=== PATIENT | male | born 1955 | race Two or more races ===

== ENCOUNTER 2024-02-04 09:00 | Emergency (ER) | payer OTHER, SELFPAY ==
[2024-02-04 09:01] VITALS: BMI 32.8
[2024-02-04 09:18] VITALS: BP 152/86; PULSE 63; RESP 18; TEMP 36.7; O2SAT 98; BMI 34.6
--- NOTE | 2024-02-04 09:22 | XR_ITS ---
Examination: PA lateral chest 2 views Technique: Upright PA lateral chest 2 views Exam date and time: January 27, 2024 0938 hrs. Comparison July 27, 2012 Indications: Onset chest pain today. Findings: Normal heart size Mild vascular congestion. No lobar pneumonia or pulmonary edema Mild osteopenia Impression: Mild vascular congestion
--- NOTE | 2024-02-04 09:22 | EKG_ITS ---
[facility] Test Date: 2024-02-04 Pat Name: VALERIE CARLOS Department: Room: - Gender: Male Regulatory Compliance Manager: : 1955 Requested By: Daniel Fischer ([facility]) Order Number: [id number] Reading MD: Daniel Fischer ([facility]) Measurements Intervals [place] Rate: 66 P: 44 PA: 155 QRS: -34 QRSD: 101 T: 158 QT: 419 QTc: 441 Interpretive Statements SINUS RHYTHM MARKED LEFT AXIS DEVIATION [QRS AXIS < -30] MODERATE T-WAVE ABNORMALITY, CONSIDER LATERAL ISCHEMIA [-0.1+ mV T WAVE IN I/aVL/V5/V6] No previous ECG available for comparison /store/S0/[id number]/[id number].pdf
--- NOTE | 2024-02-04 09:22 | PD.EDRME ---
Rapid Medical Screening Exam RME Arrival date/time: 02/04/24 09:00 68-year-old male presents emergency department complaining of low back pain that radiates down hes right leg and dyspnea with exertion. Patient reports seen primary care provider yesterday and was told to go to the emergency department for further evaluation. Chief Complaint: Back Pain/Injury Vital signs: Vital Signs Temperature 98.0 F 02/04/24 09:18 Pulse Rate 63 02/04/24 09:18 Respiratory Rate 18 02/04/24 09:18 Blood Pressure 152/86 H 02/04/24 09:18 Pulse Oximetry (%) 98 02/04/24 09:18 Oxygen Delivery Method Room Air 02/04/24 09:18 Vital signs reviewed by provider: Yes
[2024-02-04] MEDS: ACETAMINOPHEN 500 MG TABLET 1000 MG PO (09:34)
[2024-02-04 10:16] LABS: Basophils # (Auto) 0.1 Thou/mm3 (0.0-0.2); Basophils % (Auto) 1 % (0-2.5); Eosinophils # (Auto) 0.6 Thou/mm3 (0.0-0.5); Eosinophils % (Auto) 8 % (0-10); Hematocrit 46.6 % (41.0-53.0); Hemoglobin 15.1 g/dL (13.5-16.0); Immature Granulocytes % (Auto) 1 % (0-0); Immature Granulocytes Auto 0.05 Thou/mm3 (0.00-0.00); Lymphocytes # (Auto) 1.6 Thou/mm3 (1.0-4.8); Lymphocytes % (Auto) 21 % (10-50); Mean Corpuscular HGB Conc 32.4 g/dl (31.0-37.0); Mean Corpuscular Hemoglobin 28.5 pg (25.0-35.0); Mean Corpuscular Volume 88 fL (80-100); Monocytes # (Auto) 0.7 Thou/mm3 (0.0-0.8); Monocytes % (Auto) 10 % (0-12); Neutrophils # (Auto) 4.5 Thou/mm3 (1.8-7.7); Neutrophils % (Auto) 60 % (37-80); Nucleated Red Blood Cell % 0 /100 WBC (0); Platelet Count 180 Thou/mm3 (140-440); RDW Standard Deviation 43.9 fL (35.1-43.9); Red Blood Count 5.29 Miln/mm3 (4.50-5.90); White Blood Count 7.5 Thou/mm3 (3.8-10.6)
[2024-02-04 10:31] VITALS: BP 128/85; PULSE 66; RESP 20; TEMP 36.8; O2SAT 97
[2024-02-04 10:36] LABS: Partial Thromboplastin Time 28.8 Seconds (22.0-36.0); Prothrombin Time 11.1 Seconds (9.0-12.2)
[2024-02-04 10:47] LABS: Alanine Aminotransferase 43 U/L (10-49); Albumin, Serum 5.2 gm/dL (3.4-4.8); Alkaline Phosphatase 89 U/L (46-116); Anion Gap 4 (7-16); Aspartate Amino Transferase 19 U/L (0-34); B-Type Natriuretic Peptide 76 pg/mL (0-100); BUN/Creatinine Ratio 16 Ratio (12-20); Bilirubin,Total 0.8 mg/dL (0.3-1.2); Blood Urea Nitrogen 14 mg/dL (9-23); Calcium 10.2 mg/dL (8.3-10.6); Calcium (Corrected) 10.2 mg/dL (8.5-10.1); Carbon Dioxide 30.6 mMol/L (20.0-31.0); Chloride 104 mMol/L (98-107); Creatinine (Component) 0.9 mg/dL (0.6-1.3); Estimated Creatinine Clearance 86.2 mL/min (>60); Globulin 2.6 gm/dL (2.3-3.5); Glucose 105 mg/dL (74-106); Magnesium 2.1 mg/dL (1.6-2.6); Osmolality,Calculated 278 (275-295); Potassium 4.1 mMol/L (3.4-5.1); Sodium 139 mMol/L (136-145); Total Protein 7.8 gm/dL (5.7-8.2); Troponin I < 0.020 ng/mL (0.0-0.045); eGFR > 60 See Note
--- NOTE | 2024-02-04 11:10 | XR_ITS ---
Examination:Right hip AP, lateral, AP pelvis 3 views Technique: Hip AP lateral, AP pelvis, 3 views Exam date and time:January 27, 2024 1115 hrs. Indications: Right hip pain beginning 2 weeks ago, no trauma Findings: Moderate osteopenia Moderate narrowing hip joints bilaterally No right hip fracture or dislocation No avascular necrosis Left hip bones of the pelvis intact Impression: Moderate bilateral hip osteoarthritis.
--- NOTE | 2024-02-04 11:10 | XR_ITS ---
Examination: Lumbar spine 3 views Technique one AP lateral coned lateral lower lumbar spine 3 views Exam date and time: February 04, 2024 1121 hrs. Indications: Low back pain beginning 2 weeks ago, no trauma Findings: Straightening normal lumbar lordosis No lumbar fracture Prominent lumbar spondylosis, anterior osteophytes measuring up to 3.5 cm Moderate to advanced diffuse lumbar degenerative disc disease, most severe at L4-L5 No spondylolisthesis Impression: Diffuse moderate to advanced lumbar degenerative disc disease with significant spinal stenosis Prominent lumbar spondylosis
--- NOTE | 2024-02-04 11:19 | PD.EDADULT ---
ED General RME/HPI General Chief complaint: Back Pain/Injury Stated complaint: SCIATIC/ARTHRITIS FOR 10 DAYS Arrival date/time: 02/04/24 09:00 RME / HPI RME / HPI narrative: 02/04/24 09:00 RME: 68-year-old male presents emergency department complaining of low back pain that radiates down hes right leg and dyspnea with exertion. Patient reports seen primary care provider yesterday and was told to go to the emergency department for further evaluation. ELSY HPI: 68-year-old male with a history of chronic hip and low back pain who presents to the emergency department with recurrence of his right hip and right leg pain. He states is worse every time of this year particularly worsened by the cold in the rain. He feels that it starts on the right side of his hip but it feels like hammers hitting his bone) down the lateral length of his femur and fibula. He denies recent trauma. He has seen his primary care doctor about this several times over the last decade and has been diagnosed with sciatica . He takes ibuprofen for this pain. Ibuprofen has not been improving his pain he went to see his primary care physician yesterday who on triage noted that his heart was slow and recommended he come to the emergency department for workup. Patient denies symptoms, he denies shortness of breath, weakness. He denies palpitations or chest pain. Related Data Previous Rx's ?Medication ?Instructions ?Recorded cyclobenzaprine 5 mg tablet 5 mg PO TID PRN muscle spasm #10 09/23/17 tabs ibuprofen 600 mg tablet (IBU) 600 mg PO TID PRN neck strain #30 09/23/17 tabs gabapentin 100 mg capsule 100 mg PO TID pain #15 caps 02/04/24 hydrocodone 5 mg-acetaminophen 325 1 tab PO Q8H PRN breakthrough pain 02/04/24 mg tablet #7 tabs Allergies Allergy/AdvReac Type Severity Reaction Status Date / Time No Known Allergies Allergy Verified 02/04/24 09:05 Review of Systems Review of Systems Systems Reviewed: All systems reviewed, normal except as documented ED Exam Narrative Physical exam: GENERAL APPEARANCE: AxOx4, generally well-appearing, no acute distress. HEENT: NC, AT. MMM. EOMI, clear conjunctiva, oropharynx clear. NECK: Supple without lymphadenopathy. No stiffness or restricted ROM. HEART: Normal rate and regular rhythm, normal S1/S1, no m/r/g LUNGS: CTAB, moving air well. No crackles or wheezes are heard. ABDOMEN: Soft, nontender, nondistended with good bowel sounds heard. BACK: No midline C/T/L spine pain or deformity, No CVAT, no obvious deformity. EXTREMITIES: Without cyanosis, clubbing or edema. MUSCULOSKELETAL: FROM of all major joints, mild tenderness over the lateral aspect of his right hip, knee with full range of motion without deficit or swelling. No foot drop no chest tenderness NEUROLOGICAL: Grossly nonfocal. Alert and oriented, moving all 4 extremities. CN not formally tested but appear grossly intact. Observed to ambulate with normal gait. Skin: Warm and dry without any rash. Course Quality Measures none Orders Category Date Time Status EKG (ED ONLY) *Do not use* NOW Care 02/04/24 09:22 Completed EKG (ED Only) Stat Exams 02/04/24 09:22 Draft XR chest 2V Stat Exams 02/04/24 09:22 Completed XR hip RT w pelvis 2-3V Stat Exams 02/04/24 11:10 Completed XR lumbar spine 2-3V Stat Exams 02/04/24 11:10 Completed B-Type Natriuretic Peptide Stat Lab 02/04/24 10:00 Completed CBC Stat Lab 02/04/24 10:00 Completed Comprehensive Metabolic Panel Stat Lab 02/04/24 10:00 Completed Drug Screen,Urine Stat Lab 02/04/24 10:53 Completed Magnesium Stat Lab 02/04/24 10:00 Completed Partial Thromboplastin Time Stat Lab 02/04/24 10:00 Completed Prothrombin Time with INR Stat Lab 02/04/24 10:00 Completed Troponin I Stat Lab 02/04/24 10:00 Completed Urinalysis Stat Lab 02/04/24 10:53 Completed Acetaminophen Tab [Tylenol ES Tab] Med 02/04/24 09:24 Discontinued 1,000 mg PO X1 ONE Gabapentin [Neurontin] Med 02/04/24 11:10 Discontinued 300 mg PO X1 ONE Ketorolac Inj [Toradol Inj] Med 02/04/24 11:10 Discontinued 30 mg IM X1 ONE Vital Signs Vital signs: Vital Signs Temperature 98.0 F 02/04/24 09:18 Pulse Rate 63 02/04/24 09:18 Respiratory Rate 18 02/04/24 09:18 Blood Pressure 152/86 H 12/28/24 09:18 Pulse Oximetry (%) 98 02/04/24 09:18 Oxygen Delivery Method Room Air 02/04/24 09:18 SpO2 98% on room air, patient is not hypoxic Procedures -ED EKG Interpretation #1: Date of EK02/04/24 Time of EK:38 Rate: 68 Interpretation: Interpreted by me EKG Impression: Normal sinus rhythm, No acute ST-T changes, Normal intervals and Normal axis MDM Patient data External records reviewed:: [facility] previous records Clinical information provided by:: patient Social determinants that could affect healthcare access:: none Patient has the following chronic illnesses:: Arthritis How is presenting disease/condition affected by chronic disease/condition?: caused by Evaluation data The following diagnostics were reviewed and interpreted by me:: lab results, radiology exam(s) and EKG tracing(s) Lab and/or radiology exams considered but not ordered:: None Interpretation Summary: As per narrative Medications Medications considered but not ordered:: None Medication administrations:: Medication Administration History Discontinued Medications Acetaminophen (Acetaminophen 500 Mg Tablet) 1,000 mg PO X1 ONE Stop: 02/04/24 09:25 Last Admin: 02/04/24 09:34 Dose: 1,000 mg Documented By: ASLHEY Gabapentin (Gabapentin 300 Mg Capsule) 300 mg PO X1 ONE Stop: 02/04/24 11:11 Last Admin: 02/04/24 12:20 Dose: 300 mg Documented By: KAMLESH Ketorolac Tromethamine (Ketorolac Inj 60 Mg/2 Ml Vial) 30 mg IM X1 ONE Stop: 02/04/24 11:11 Last Admin: 02/04/24 12:20 Dose: 30 mg Documented By: KAMLESH Above Consultations Consultation(s) initiated? (list below): No Diagnosis Differential Diagnosis ED Complaint MDM: Osteoarthritis, gout, neuropathy, bone metastases Most likely diagnosis given after review of the tests above:: see below Admission Indicated Admission indicated?: not indicated Explain why admission is indicated or not indicated:: Chronic issue with without acute findings and normal neurologic exam, he is appropriate for outpatient follow-up with pain management Admission Request Was there a request for admission?: No Disposition Plan Disposition Plan: Discharge Discharge Attestation Discharge Attestation: The patient and all family members were given an opportunity to ask questions and understood the discharge instructions. Discharge instructions specifically effects, indications for sooner follow up or return to the emergency department, and the expected course of current diagnosis. Patient condition: Stable Medical Decision Making Differential Diagnosis Differential Diagnosis: Osteoarthritis, gout, neuropathy, bone metastases Lab Data 02/04/24 10:00 02/04/24 10:00 Labs: Lab Results 02/04/24 02/04/24 Range/Units 10:00 10:53 WBC 7.5 (3.8-10.6) Thou/mm3 RBC 5.29 (4.50-5.90) Miln/mm3 Hgb 15.1 (13.5-16.0) g/dL Hct 46.6 (41.0-53.0) % MCV 88 (80-100) fL MCH 28.5 (25.0-35.0) pg MCHC 32.4 (31.0-37.0) g/dl RDW Std Deviation 43.9 (35.1-43.9) fL Plt Count 180 (140-440) Thou/mm3 Neut % (Auto) 60 (37-80) % Lymph % (Auto) 21 (10-50) % [place] % (Auto) 10 (0-12) % Eos % (Auto) 8 (0-10) % Baso % (Auto) 1 (0-2.5) % Neut # (Auto) 4.5 (1.8-7.7) Thou/mm3 Lymph # (Auto) 1.6 (1.0-4.8) Thou/mm3 [place] # (Auto) 0.7 (0.0-0.8) Thou/mm3 Eos # (Auto) 0.6 H (0.0-0.5) Thou/mm3 Baso # (Auto) 0.1 (0.0-0.2) Thou/mm3 Immature Gran # (Auto) 0.05 H (0.00-0.00) Thou/mm3 Absolute Nucleated RBC 0.00 (0.00-0.00) Thou/mm3 Immature Gran % 1 H (0-0) % Nucleated RBC % 0 (0) /100 WBC PT 11.1 (9.0-12.2) Seconds INR 1.0 (0.9-1.3) APTT 28.8 (22.0-36.0) Seconds Sodium 139 (136-145) mMol/L Potassium 4.1 (3.4-5.1) mMol/L Chloride 104 (98-107) mMol/L Carbon Dioxide 30.6 (20.0-31.0) mMol/L Anion Gap 4 L (7-16) BUN 14 (9-23) mg/dL Creatinine 0.9 (0.6-1.3) mg/dL Estim Creat Clear Calc 86.2 (>60) mL/min eGFR > 60 (60 - ) See Note BUN/Creatinine Ratio 16 (12-20) Ratio Glucose 105 (74-106) mg/dL Calculated Osmolality 278 (275-295) Calcium 10.2 (8.3-10.6) mg/dL Corrected Calcium 10.2 H (8.5-10.1) mg/dL Magnesium 2.1 (1.6-2.6) mg/dL Total Bilirubin 0.8 (0.3-1.2) mg/dL AST 19 (0-34) U/L ALT 43 (10-49) U/L Alkaline Phosphatase 89 (46-116) U/L Troponin I < 0.020 (0.0-0.045) ng/mL B-Natriuretic Peptide 76 (0-100) pg/mL Total Protein 7.8 (5.7-8.2) gm/dL Albumin 5.2 H (3.4-4.8) gm/dL Globulin 2.6 (2.3-3.5) gm/dL Albumin/Globulin Ratio 2.0 (1.2-2.2) Ur Collection Type Clean Catch Urine Color Lt-Yellow (Lt Yel-Yel) Urine Clarity Clear (Clear/Hazy) Urine pH 6.0 (5.0-7.0) Ur Specific [place] 1.015 (1.001-1.035) Urine Protein Negative (Neg - Trace) Urine Glucose (UA) Negative (Negative) Urine Ketones Negative (Negative) Urine Blood Trace (Negative) Urine Nitrite Negative (Negative) Urine Bilirubin Negative (Negative) Urine Urobilinogen (Auto) Negative (0.0-1.0) mg/dL Ur Leukocyte Esterase Negative (Negative) Urine RBC 4 H (0-3) /hpf Urine WBC 1 (0-5) /hpf Ur Squamous Epith Cells < 1 (0-5) /hpf Urine Bacteria None (None) Urine Opiates Screen Negative (Negative) Urine Fentanyl Screen Negative (Negative) Ur Barbiturates Screen Negative (Negative) U Amphetamin/Meth Scrn Negative (Negative) U Benzodiazepines Scrn Negative (Negative) U Cocaine Metab Screen Negative (Negative) U Marijuana (THC) Screen Negative (Negative) Discharge Plan Plan Patient Disposition: HOME (Self Care) Prescriptions/Referrals Prescriptions/Med Rec: New gabapentin 100 mg capsule 100 mg PO TID Qty: 15 0RF hydrocodone-acetaminophen 5-325 mg tablet 1 tab PO Q8H MDD 3 tab/day PRN (Reason: breakthrough pain) Qty: 7 0RF No Action ibuprofen [IBU] 600 mg tablet 600 mg PO TID PRN (Reason: neck strain) Qty: 30 0RF cyclobenzaprine 5 mg tablet 5 mg PO TID PRN (Reason: muscle spasm) Qty: 10 0RF Referrals: Cayla Pineda MD [Primary Care Provider] - In 1 week Problem List Clinical Impression: Sciatica, Arthritis of both hips Patient/Caregiver Discharge Instructions Education Materials: ED Osteoarthritis, ED Sciatica Additional Instructions: James un seguimiento con arciniega m?dico de atenci?n primaria en 3 a 5 d?as si los s?ntomas no mejoran. Puede regresar al departamento de emergencias [facility] pronto katherin los s?ntomas empeoren o si nota alg?n problema nuevo que le preocupe. Print Language: Kinyarwanda Stand Alone Forms: [place] [facility] Info., Patient Portal Info Letter
[2024-02-04 11:43] LABS: Collection Type, Urine Clean Catch
[2024-02-04 11:54] LABS: Bilirubin,Urine Negative (Negative); Blood,Urine Trace (Negative); Clarity,Urine Clear (Clear/Hazy); Color,Urine Lt-Yellow (Lt Yel-Yel); Glucose, Urine Negative (Negative); Ketones,Urine Negative (Negative); Leukocyte Esterase,Urine Negative (Negative); Nitrite,Urine Negative (Negative); Protein,Urine Negative (Neg - Trace); RBC,Urine 4 /hpf (0-3); Specific Gravity,Urine 1.015 (1.001-1.035); Squamous Epithelial Cell,Urine < 1 /hpf (0-5); Urobilinogen,Urine Negative mg/dL (0.0-1.0); WBC,Urine 1 /hpf (0-5)
[2024-02-04 12:01] LABS: Amphetamine/Methamp Scrn,U Negative (Negative); Barbiturate Screen,Urine Negative (Negative); Benzodiazepines Screen,Urine Negative (Negative); Benzoylecgonine Screen, Ur Negative (Negative); Fentanyl Screen,Urine Negative (Negative); Opiate Screen,Urine Negative (Negative); THC Screen,Urine Negative (Negative)
[2024-02-04] MEDS: KETOROLAC INJ 60 MG/2 ML VIAL 30 MG IM (12:20)
[2024-02-04] MEDS: GABAPENTIN 300 MG CAPSULE PO (12:20)
== END 2024-02-04 12:51 | disposition home or self-care (01) ==
PROVIDERS: Emergency Provider Emergency Medicine; PCP Family Medicine
DX: M54.41 Lumbago with sciatica, right side (principal); M16.0 Bilateral primary osteoarthritis of hip; R06.00 Dyspnea, unspecified; M51.369 Other intervertebral disc degeneration, lumbar region without mention of lumbar back pain or lower extremity pain; M48.061 Spinal stenosis, lumbar region without neurogenic claudication
CPT/HCPCS: 36415; 71046; 72100; 73502; 80053; 80307; 81001; 83735; 83880; 84484; 85025; 85610; 85730; 93005; 96372; 99283; J1885; A9270

== ENCOUNTER 2024-08-07 11:28 | Inpatient (IN) | payer MEDICARE, OTHER, SELFPAY ==
[2024-08-07] VITALS (13 sets, daily range): BP systolic 120–140; BP diastolic 78–109; PULSE 62–95; RESP 12–27; TEMP 36.7–37.1; O2SAT 93–99; BMI 32.4
--- NOTE | 2024-08-07 11:57 | EKG_ITS ---
[facility] Test Date: 2024-08-07 Pat Name: VALERIE CARLOS Department: Room: - Gender: Male Tube Buffer: : 1955 Requested By: Rob Redmond Order Number: [id number] Reading MD: Rob Redmond Measurements Intervals [place] Rate: 66 P: 40 OR: 167 QRS: -20 QRSD: 101 T: 122 QT: 398 QTc: 418 Interpretive Statements SINUS RHYTHM WITH OCCASIONAL VENTRICULAR PREMATURE COMPLEXES NONSPECIFIC T-WAVE ABNORMALITY Compared to ECG 02/04/2024 09:38:37 Ventricular premature complex(es) now present Left-axis deviation no longer present Possible ischemia no longer present T-wave abnormality still present /store/S0/[id number].pdf
--- NOTE | 2024-08-07 11:57 | XR_ITS ---
Examination: PA lateral chest 2 views TECHNIQUE: Upright PA lateral chest 2 views Date and time: August 07, 2024 1208 hours Comparison February 04, 2024 INDICATIONS: Chest pain today. FINDINGS: Mild CHF Mild enlargement cardiac contour. Prominent vascular congestion with perihilar basilar edema Prominent osteopenia, prominent anterior osteophytes mid to lower dorsal spine IMPRESSION: Mild CHF
--- NOTE | 2024-08-07 12:09 | PD.EDRME ---
Rapid Medical Screening Exam RME Arrival date/time: 08/07/24 11:28 69-year-old male with no known medical history presents to the emergency room with a chief complaint of shortness of breath, bilateral lower extremity swelling, x 1 week I have greeted and performed a focused initial assessment of this patient. A comprehensive ED assessment and evaluation of the patient, analysis of all test results, and completion of the medical decision making process will be conducted by additional ED providers. Chief Complaint: Shortness of Breath/Dyspnea Vital signs: Vital Signs Temperature 98.8 F 08/07/24 11:50 Pulse Rate 69 08/07/24 11:50 Respiratory Rate 19 08/07/24 11:50 Blood Pressure 128/87 H 08/07/24 11:50 Pulse Oximetry (%) 95 08/07/24 11:50 Oxygen Delivery Method Room Air 08/07/24 11:50 Vital signs reviewed by provider: Yes
[2024-08-07 13:04] LABS: Basophils # (Auto) 0.1 Thou/mm3 (0.0-0.2); Basophils % (Auto) 1 % (0-2.5); Eosinophils # (Auto) 0.2 Thou/mm3 (0.0-0.5); Eosinophils % (Auto) 2 % (0-10); Hematocrit 42.2 % (41.0-53.0); Hemoglobin 13.6 g/dL (13.5-16.0); Immature Granulocytes Auto 0.02 Thou/mm3 (0.00-0.00); Lymphocytes # (Auto) 1.0 Thou/mm3 (1.0-4.8); Lymphocytes % (Auto) 11 % (10-50); Mean Corpuscular HGB Conc 32.2 g/dl (31.0-37.0); Mean Corpuscular Hemoglobin 27.5 pg (25.0-35.0); Mean Corpuscular Volume 85 fL (80-100); Monocytes # (Auto) 0.7 Thou/mm3 (0.0-0.8); Monocytes % (Auto) 8 % (0-12); Neutrophils # (Auto) 7.3 Thou/mm3 (1.8-7.7); Neutrophils % (Auto) 79 % (37-80); Nucleated Red Blood Cell # 0.00 Thou/mm3 (0.00-0.00); Nucleated Red Blood Cell % 0 /100 WBC (0); Platelet Count 142 Thou/mm3 (140-440); RDW Standard Deviation 45.1 fL (35.1-43.9); Red Blood Count 4.95 Miln/mm3 (4.50-5.90); White Blood Count 9.3 Thou/mm3 (3.8-10.6)
[2024-08-07 13:24] LABS: Alanine Aminotransferase 66 U/L (10-49); Albumin, Serum 4.3 gm/dL (3.4-4.8); Albumin/Globulin Ratio 1.7 (1.2-2.2); Alkaline Phosphatase 95 U/L (46-116); Anion Gap 6 (7-16); Aspartate Amino Transferase 44 U/L (0-34); BUN/Creatinine Ratio 12 Ratio (12-20); Bilirubin,Total 0.9 mg/dL (0.3-1.2); Blood Urea Nitrogen 12 mg/dL (9-23); Calcium 9.4 mg/dL (8.3-10.6); Calcium (Corrected) 9.4 mg/dL (8.5-10.1); Carbon Dioxide 29.1 mMol/L (20.0-31.0); Chloride 109 mMol/L (98-107); Creatinine (Component) 1.0 mg/dL (0.6-1.3); Estimated Creatinine Clearance 66.9 mL/min (>60); Globulin 2.5 gm/dL (2.3-3.5); Glucose 102 mg/dL (74-106); INR 1.0 (0.9-1.3); Osmolality,Calculated 286 (275-295); Partial Thromboplastin Time 29.8 Seconds (22.0-36.0); Potassium 4.6 mMol/L (3.4-5.1); Prothrombin Time 11.4 Seconds (9.0-12.2); Sodium 144 mMol/L (136-145); Total Protein 6.8 gm/dL (5.7-8.2); Troponin I < 0.020 ng/mL (0.0-0.045); eGFR > 60 See Note
[2024-08-07 13:26] LABS: Collection Type, Urine Clean Catch; Squamous Epithelial Cell,Urine 0 /hpf (0-5)
[2024-08-07 13:34] LABS: B-Type Natriuretic Peptide 467 pg/mL (0-100)
[2024-08-07 13:52] LABS: Bilirubin,Urine Negative (Negative); Blood,Urine Negative (Negative); Clarity,Urine Clear (Clear/Hazy); Color,Urine Yellow (Lt Yel-Yel); Glucose, Urine Negative (Negative); Ketones,Urine Negative (Negative); Leukocyte Esterase,Urine Negative (Negative); Nitrite,Urine Negative (Negative); PH,Urine 6.5 (5.0-7.0); Protein,Urine 1+ (Neg - Trace); RBC,Urine 7 /hpf (0-3); Specific Gravity,Urine 1.029 (1.001-1.035); Urobilinogen,Urine Negative mg/dL (0.0-1.0); WBC,Urine 2 /hpf (0-5)
[2024-08-07 13:53] LABS: Amphetamine/Methamp Scrn,U Negative (Negative); Barbiturate Screen,Urine Negative (Negative); Benzodiazepines Screen,Urine Negative (Negative); Benzoylecgonine Screen, Ur Negative (Negative); Fentanyl Screen,Urine Negative (Negative); Opiate Screen,Urine Negative (Negative); THC Screen,Urine Negative (Negative)
--- NOTE | 2024-08-07 18:09 | EDNOTE_ITS ---
ED SOB =RME/HPI General Chief Complaint: Shortness of Breath/Dyspnea Stated Complaint: SOB Time Seen by Provider: 08/07/24 18:16 Arrival date/time: 08/07/24 11:28 69-year-old male with no known past medical history presents to the ED with a complaint of shortness of breath for the past 2 days. The shortness of breath is worse with laying flat. He has also had a mild sore throat due to the phlegm as well as a mild cough with phlegm, unknown color. He has had some mild epigastric pain. He denies any chest pain, fever or chills, runny nose or nasal congestion, ear pain, nausea or vomiting, diarrhea or constipation, but has had some posterior cervical spine pain. RME / HPI RME / HPI Narrative: 08/07/24 11:28 69-year-old male with no known medical history presents to the emergency room with a chief complaint of shortness of breath, bilateral lower extremity swelling, x 1 week I have greeted and performed a focused initial assessment of this patient. A comprehensive ED assessment and evaluation of the patient, analysis of all test results, and completion of the medical decision making process will be conducted by additional ED providers. Related Data Previous Rx's ?Medication ?Instructions ?Recorded cyclobenzaprine 5 mg tablet 5 mg PO TID PRN muscle spa sm #10 09/23/17 tabs ibuprofen 600 mg tablet (IBU) 600 mg PO TID PRN neck s train #30 09/23/17 tabs gabapentin 100 mg capsule 100 mg PO TID pain #15 caps 02/04/24 hydrocodone 5 mg-acetaminophen 325 1 tab PO Q8H PRN br eakthrough pain 02/04/24 mg tablet #7 tabs Allergies Allergy/AdvReac Type Severity Reaction Status Date / Time No Known Allergies Allergy Verified 08/07/24 11:35 Review of Systems Review of Systems Systems Reviewed: All systems reviewed, normal except as documented Past Medical History Past Medical History CARDIAC: Negative Congestive Heart Failure RESPIRATORY: Negative Chronic Obstructive Pulmonary Disease (COPD) GASTROINTESTINAL: Positive Obesity GENITOURINARY: Positive Kidney Stones; Negative Renal Disease ENDOCRINE: Negative Diabetes Mellitus Type 1 or Diabetes Mellitus Type 2 Social History SMOKING STATUS: Never smoker ED Exam Narrative Physical exam: Alert and oriented, male, laying flat on the gurney, mild acute respiratory distress. Vital signs blood pressure 128/87, pulse 69, respirations 19, temperature 98.8, O2 sat 95% on room air. Cardiovascular regular rate and rhythm, lungs are congested, abdomen is soft with minimal to mild epigastric tenderness. Moves all extremities well, no pitting edema noted to bilateral lower extremities. Course Course Course Narrative: Labs reveal a normal white count, normal H&H and platelets. Coags were normal, chemistry panel reveals a minimally elevated chloride at 109. Normal renal function, mildly elevated AST/ALT at 44/66. Initial troponin was less than 0.020 and second troponin was also less than 0.020. BNP was elevated at 467. Urinalysis is negative for any infection. Urine tox screen is negative. COVID, influenza, strep screen are all negative. Initial EKG revealed sinus rhythm with occasional PVCs with no T wave abnormality or ST elevation. Second EKG reveals sinus rhythm with frequent PVCs with left axis deviation with no T wave abnormality or ST elevation. Chest x-ray reveals mild CHF. Quality Measures none Orders Category Date Time Status Bedside Influenza A&B Antigen Test NOW Care 08/07/24 20:06 Completed EKG (ED ONLY) *Do not use* NOW Care 08/07/24 11:57 Completed EKG (ED ONLY) *Do not use* NOW Care 08/07/24 19:29 Completed EKG (ED Only) Stat Exams 08/07/24 11:57 Draft EKG (ED Only) Stat Exams 08/07/24 19:29 Draft XR chest 2V Stat Exams 08/07/24 11:57 Completed B-Type Natriuretic Peptide Stat Lab 08/07/24 12:40 Completed CBC Stat Lab 08/07/24 12:40 Completed COVID-19 Antigen (In-House) Stat Lab 08/07/24 20:20 Completed Comprehensive Metabolic Panel Stat Lab 08/07/24 12:40 Completed Drug Screen,Urine Stat Lab 08/07/24 11:00 Completed Partial Thromboplastin Time Stat Lab 08/07/24 12:40 Completed Prothrombin Time with INR Stat Lab 08/07/24 12:40 Completed Strep A Rapid Stat Lab 08/07/24 20:06 Completed Troponin I Stat Lab 08/07/24 12:40 Completed Troponin I Stat Lab 08/07/24 20:13 Completed Urinalysis Stat Lab 08/07/24 11:00 Completed Furosemide [Lasix] Med 08/07/24 22:32 Once 20 mg PO X1 ONE Vital Signs Vital signs: Vital Signs Temperature 98.8 F 08/07/24 11:50 Pulse Rate 69 08/07/24 11:50 Respiratory Rate 19 08/07/24 11:50 Blood Pressure 128/87 H 08/07/24 11:50 Pulse Oximetry (%) 95 08/07/24 11:50 Oxygen Delivery Method Room Air 08/07/24 11:50 Shortness of Breath / Dyspnea MDM Narrative MDM Narrative:: 69-year-old male with no known past medical history presents to the ED with a complaint of shortness of breath for the past 2 days. The shortness of breath is worse with laying flat. He has also had a mild sore throat due to the phlegm as well as a mild cough with phlegm, unknown color. He has had some mild epigastric pain. He denies any chest pain, fever or chills, runny nose or nasal congestion, ear pain, nausea or vomiting, diarrhea or constipation, but has had some posterior cervical spine pain. Alert and oriented, male, laying flat on the gurney, mild acute respiratory distress. Vital signs blood pressure 128/87, pulse 69, respirations 19, temperature 98.8, O2 sat 95% on room air. Cardiovascular regular rate and rhythm, lungs are congested, no JVD is noted, abdomen is soft with minimal to mild epigastric tenderness. Moves all extremities well, no pitting edema noted to bilateral lower extremities. Labs reveal a normal white count, normal H&H and platelets. Coags were normal, chemistry panel reveals a minimally elevated chloride at 109. Normal renal function, mildly elevated AST/ALT at 44/66. Initial troponin was less than 0.020 and second troponin was also less than 0.020. BNP was elevated at 467. Urinalysis is negative for any infection. Urine tox screen is negative. COVID, influenza, strep screen are all negative. Initial EKG revealed sinus rhythm with occasional PVCs with no T wave abnormality or ST elevation. Second EKG reveals sinus rhythm with frequent PVCs with left axis deviation with no T wave abnormality or ST elevation. Chest x-ray reveals mild CHF. At one point during his visit his oxygen saturation dropped down into the 90% but has since improved to 95-96% on room air. He was given Lasix 20 mg p.o. Discussed case with Dr. Kahn who recommends obtaining a consult from the hospitalist service for evaluation for admission for diuresis and morning echocardiogram. Contacted hospitalist service for consultation for possible admission for overnight diuresis and morning echocardiogram, due to his orthopnea and new onset CHF. Patient data External records reviewed:: None Clinical information provided by:: patient Social determinants that could affect healthcare access:: none Patient has the following chronic illnesses:: N/A How is presenting disease/condition affected by chronic disease/condition?: no chronic disease Evaluation data The following diagnostics were reviewed and interpreted by me:: lab results and radiology exam(s) Lab and/or radiology exams considered but not ordered:: N/A Interpretation Summary: Labs reveal a normal white count, normal H&H and platelets. Coags were normal, chemistry panel reveals a minimally elevated chloride at 109. Normal renal function, mildly elevated AST/ALT at 44/66. Initial troponin was less than 0.020 and second troponin was also less than 0.020. BNP was elevated at 467. Urinalysis is negative for any infection. Urine tox screen is negative. COVID, influenza, strep screen are all negative. Chest x-ray reveals mild CHF. Medications / Prescriptions Medications or Prescriptions considered but not ordered:: N/A Medication administrations:: Medication Administration History Furosemide (Furosemide 20 Mg Tablet) 20 mg PO X1 ONE Stop: 08/07/24 22:33 Lasix 20 mg p.o. Consultations Consultation(s) initiated? (list below): Yes Consultation #1 (Physician, Specialty, Details): Contacted hospitalist service for consultation for possible admission for overnight diuresis and morning echocardiogram, due to his orthopnea and new onset CHF. Diagnosis Shortness of Breath Differential Diagnosis: congestive heart failure, community acquired pneumonia and asthma with exacerbation Most likely diagnosis given after review of the tests above:: New onset CHF with orthopnea Admission Indicated Admission indicated?: indicated Explain why admission is indicated or not indicated:: New onset CHF with orthopnea Admission Request Was there a request for admission?: Yes Admission Attestation Admission request attestation: Discussed case with Hospitalist service regarding admission. Discussed patients ED course, exam findings, labs, and radiology results. The Hospitalist agrees to consult on the patient for possible admission. Disposition Plan Disposition Plan: Admit Discharge Plan Plan Patient Disposition: Admit Acute Care w/in Hospital Discharge Disposition comment: Stable Prescriptions/Referrals Prescriptions/Med Rec: No Action ibuprofen [IBU] 600 mg tablet 600 mg PO TID PRN (Reason: neck strain) Qty: 30 0RF cyclobenzaprine 5 mg tablet 5 mg PO TID PRN (Reason: muscle spasm) Qty: 10 0RF gabapentin 100 mg capsule 100 mg PO TID Qty: 15 0RF hydrocodone-acetaminophen 5-325 mg tablet 1 tab PO Q8H MDD 3 tab/day PRN (Reason: breakthrough pain) Qty: 7 0RF Referrals: Cayla Pineda MD [Primary Care Provider] - In 1 week Problem List Clinical Impression: Congestive heart failure Impression comment: New onset w/ORTHOPNEA Patient/Caregiver Discharge Instructions Print Language: Kazakh PA/UPPER STITCHER Supervising Physician PA/MORGAN Supervising Physician: Dr. Kahn
--- NOTE | 2024-08-07 19:29 | EKG_ITS ---
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
[2024-08-07 20:48] LABS: Troponin I < 0.020 ng/mL (0.0-0.045)
[2024-08-07 21:30] LABS: COVID-19 Antigen (In-House) Negative (Negative)
[2024-08-07 21:34] LABS: Strep A Rapid Negative (Negative)
[2024-08-08] VITALS (37 sets, daily range): BP systolic 97–137; BP diastolic 74–95; PULSE 59–96; RESP 12–28; TEMP 36.6–37.1; O2SAT 88–99
--- NOTE | 2024-08-08 03:15 | PC.NURSE ---
WE HAD DOWN TIME FROM [id number].
--- NOTE | 2024-08-08 04:07 | ECHO_ITS ---
Transthoracic Echo Report Ht (in): 64 Wt (lb): 189 Exam Location: Echo Lab Status: Emergency Auto Servicer: Aicha Mendoza Indications: Procedure Performed: BP: 127 / 82 HR: 72 Technical Quality: Technically Difficult Study MEASUREMENTS (Male / Female) Normal Values 2D ECHO LV Diastolic Diameter PLAX 6.6 cm 4.2 - 5.9 / 3.9 - 5.3 cm LV Systolic Diameter PLAX 6.0 cm IVS Diastolic Thickness 0.7 cm 0.6 - 1.0 / 0.6 - 0.9 cm LVPW Diastolic Thickness 0.7 cm 0.6 - 1.0 / 0.6 - 0.9 cm LV Relative Wall Thickness 0.2 LVOT Diameter 2.4 cm LA Volume Index 67.5 cm?/m? 16 - 28 cm?/m? Ascending Aorta Diameter 3.3 cm M-MODE AV Cusp Separation MM 1.7 cm DOPPLER AV Peak Velocity 143.0 cm/s AV Peak Gradient 8.2 mmHg LVOT Peak Velocity 90.7 cm/s LVOT Peak Gradient 3.3 mmHg AV Area Cont Eq pk 2.9 cm? MV Area PHT 4.6 cm? MR Peak Velocity 471.0 cm/s MR Peak Gradient 88.7 mmHg Mitral E Point Velocity 126.0 cm/s Mitral A Point Velocity 41.7 cm/s Mitral E to A Ratio 3.0 LV E' Lateral Velocity 4.2 cm/s Mitral E to LV E' Lateral Ratio 29.7 LV E' Septal Velocity 5.4 cm/s Mitral E to LV E' Septal Ratio 23.2 PV Peak Velocity 113.0 cm/s PV Peak Gradient 5.1 mmHg FINDINGS Left Ventricle The left ventricular cavity size is severely increased. The left ventricular wall thicknesses are normal. Severe global hypokinesis.The left ventricular ejection fraction is severely decreased, estimated at 10-15%. There is grade III diastolic dysfunction of the left ventricle (restrictive filling pattern). Right Ventricle The right ventricle is normal in size and systolic function. The estimated right ventricular systolic pressure can not be determined due to innadequate tricuspid signal. Left Atrium The left atrial cavity size is severely increased. Right Atrium The right atrial cavity size is severely increased. Atrial Septum The interatrial septum appears normal with no evidence of a shunt. Aorta The aorta is normal by two-dimensional, color flow and Doppler interrogation. Mitral Valve Mild mitral annular calcification. Trace to mild mitral regurgitation. Aortic Valve The aortic valve is trileaflet and normal by two-dimensional, color flow and Doppler interrogation. There is no significant aortic valve regurgitation. Tricuspid Valve The tricuspid valve is normal by two-dimensional, color flow and Doppler interrogation. There is no significant tricuspid valve regurgitation. Pulmonic Valve The pulmonic valve is not well visualized. There is no significant pulmonic valve regurgitation. Vessels The pulmonary artery appears normal. The inferior vena cava is severely dilated with poor collapse. Pericardium The pericardium is normal by two-dimensional imaging. There is no significant pericardial effusion. CONCLUSIONS Indications: New onset CHF Moderate to severe LV dilatation with severely reduced LVEF with an EF of 10 to 15%. Severe Global Hypokinesis. Grade 3 diastolic dysfunction. RV not visualized well. Normal RV function. Biatrial dilatation. Severe LA dilatation. Mild MAC. Trace to Mild MR. Dilated IVC. No Pericardial Effusion. Amol Carney (Electronically Signed) Final Date: 08 August 2024 13:27
--- NOTE | 2024-08-08 04:08 | ESHP_ITS ---
Documentation for date of: 08/08/24 HPI History of Present Illness Chief complaint: Shortness of breath History of present illness: 69-year-old male with no significant past medical history presenting to the ED with new onset shortness of breath and dyspnea upon exertion. Patient states that he normally follows with a PCP in [place] but does not take any prescribed medication and is unsure what his past medical history such as history of high blood pressure or diabetes. Patient states that for the past few days she has been feeling increasingly short of breath especially on exertion. Patient denies having any chest pain, palpitations, orthopnea, paroxysmal nocturnal dyspnea or lower extremity edema. Patient's is bedside and provided some history regarding patient's status and states that he has been more weak than normal. Patient otherwise denies having any concerning symptoms at this time. Medical history: As stated above Surgical history: Denies Allergies: NKDA Medications: Pending official med rec Family history: Noncontributory Social history: Patient lives with his , denies any alcohol, tobacco or illicit drug use ROS: All 12 systems as the patient denies unless otherwise stated in HPI In the ED, patient presented mildly hypertensive 122/87, heart rate 69, respiratory rate 19, afebrile but saturating between 88-95 on 2 L nasal cannula. Pertinent lab findings included AST 44, ALT 66, troponin within normal limits, BNP of 467. Urinalysis negative for any signs of infection, U-Tox negative. Chest x-ray does show prominent vascular congestion with perihilar basilar edema and mild enlargement of cardiac contour, prominent osteopenia. EKG shows sinus rhythm with nonspecific T wave changes and PVCs. Patient will be admitted for new onset CHF will be treated with IV diuretics and close monitoring. Exam Vital Signs Temp Pulse Resp BP Pulse Ox O2 Del Method O2 Flow Rate 98.2 F 88 18 125/89 H 88 L Room Air 2 08/08/24 03:55 08/08/24 03:55 08/08/24 03:55 08/08/24 03:55 08/08/24 03:55 08/08/24 03:55 08/08/24 01:35 Narrative Exam Physical Exam: GENERAL: Awake, answering questions appropriately in Upper Sorbian, appears stated age, obese HEENT: NC/AT. Moist mucosa. PERRLA/EOMI. CARDIO: Heart RRR, no obvious murmurs, no JVD. PULM: No coughing or visible SOB. Lungs CTA B/L. On 2 L nasal cannula saturating 95 GI: Abdomen soft, NT/ND, +BS. SKIN/MSK/EXT: Nonpitting edema up to bilateral feet. No wounds/discoloration/rashes/amputations noted. +Pedal pulses present B/L. NEURO: Oriented x3, Moves extremities x4, no focal neurologic deficits. Results: Labs 08/08/24 04:39 08/08/24 04:39 Labs: Short CBC 08/07/24 Range/Units 12:40 WBC 9.3 (3.8-10.6) Thou/mm3 Hgb 13.6 (13.5-16.0) g/dL Hct 42.2 (41.0-53.0) % Plt Count 142 (140-440) Thou/mm3 BMP 08/07/24 12:40 Sodium 144 Potassium 4.6 Chloride 109 H Carbon Dioxide 29.1 BUN 12 Creatinine 1.0 Glucose 102 Calcium 9.4 Cardiac Enzymes 08/07/24 08/07/24 Range/Units 12:40 20:13 Troponin I < 0.020 < 0.020 (0.0-0.045) ng/mL Liver Function 08/07/24 Range/Units 12:40 Total Bilirubin 0.9 (0.3-1.2) mg/dL AST 44 H (0-34) U/L ALT 66 H (10-49) U/L Alkaline Phosphatase 95 (46-116) U/L Albumin 4.3 (3.4-4.8) gm/dL Urine 08/07/24 Range/Units 11:00 Urine Color Yellow (Lt Yel-Yel) Urine Clarity Clear (Clear/Hazy) Urine pH 6.5 (5.0-7.0) Ur Specific [place] 1.029 (1.001-1.035) Urine Protein 1+ A (Neg - Trace) Urine Glucose (UA) Negative (Negative) Quality Measures Quality Measures none Advance care planning discussed with:: patient Medications Home Medications and Allergies Allergies Allergy/AdvReac Type Severity Reaction Status Date / Time No Known Allergies Allergy Verified 08/07/24 11:35 Visit Medications Discontinued Medications Furosemide (Furosemide 20 Mg Tablet) 20 mg PO X1 ONE Stop: 08/07/24 22:33 Last Admin: 08/07/24 23:34 Dose: 20 mg Assessment & Plan Plan 69-year-old male with no significant past medical history presenting to the ED with new onset shortness of breath and dyspnea upon exertion will be admitted for new onset CHF will be treated with IV diuretics and close monitoring. #Acute hypoxic respiratory failure secondary to #New onset CHF As per HPI, patient's been having new onset shortness of breath and dyspnea upon exertion Denies having any concerning medical history such as hypertension, diabetes, denies any family history of cardiac disease On examination, patient is requiring 2 L of nasal cannula in order to saturate between 90 to 95% Desaturates to 85 to 88% without oxygen Has nonpitting edema up to bilateral lower extremity, feet but otherwise no overt signs of congestion noted Troponin has been within normal limits x 3, BNP mildly elevated at 450 Chest x-ray does show prominent vascular congestion with perihilar basilar edema and mild enlargement of cardiac contour, prominent osteopenia. EKG shows sinus rhythm with nonspecific T wave changes and PVCs. Given IV Lasix 20 mg x 1 in the ED Plan: IV Lasix 40 mg daily Echo ordered Strict I's and O's Daily weight #Elevated LFTs Likely secondary to obesity, MASLD versus less likely to be from hepatitis, alcohol use disorder not present, congestion from CHF Plan: Liver ultrasound ordered Follow-up with morning labs Health Maintenance: Lines: PIV Diet: Cardiac Bowel: Senna GI prophylaxis:not needed DVT prophylaxis: Heparin subcu Dispo: IV diuretics for new onset CHF, echo ordered Code: Full Patient seen and examined with attending Dr. Pinky Nunez, PGY-2 Internal Medicine - GME Attending Provider Attestation/Addendum 69-year-old male patient who presented to the ED with shortness of breath more so with exertion. Patient was found to have new onset CHF. EKG showed sinus rhythm with nonspecific ST and T wave changes Patient was admitted for further evaluation and management. Echocardiogram is pending. I discussed with and supervised the resident physician who took care of this patient. I agree with the assessment and plan as above.
--- NOTE | 2024-08-08 04:14 | XR_ITS ---
Examination: Abdomen sonogram, Limited Date and time of exam: The second 20246 hours INDICATIONS: Elevated liver function tests on laboratory examination today Technique: Real-time lewis scale transabdominal sonographic images of the upper abdomen obtained. Findings: Normal gallbladder Normal common bile duct 0.5 cm Pancreatic head 3.6 cm Liver 20.0 cm lobular contour fatty infiltration Normal hepatopedal portal venous flow Patent IVC IMPRESSION: Normal gallbladder Prominent pancreatic head, consider CT scan abdomen pelvis intravenous contrast follow-up
[2024-08-08 05:20] LABS: Basophils # (Auto) 0.1 Thou/mm3 (0.0-0.2); Basophils % (Auto) 1 % (0-2.5); Eosinophils # (Auto) 0.2 Thou/mm3 (0.0-0.5); Eosinophils % (Auto) 3 % (0-10); Hematocrit 42.7 % (41.0-53.0); Hemoglobin 13.6 g/dL (13.5-16.0); Immature Granulocytes Auto 0.01 Thou/mm3 (0.00-0.00); Lymphocytes # (Auto) 1.5 Thou/mm3 (1.0-4.8); Lymphocytes % (Auto) 19 % (10-50); Mean Corpuscular HGB Conc 31.9 g/dl (31.0-37.0); Mean Corpuscular Hemoglobin 28.0 pg (25.0-35.0); Mean Corpuscular Volume 88 fL (80-100); Monocytes # (Auto) 0.6 Thou/mm3 (0.0-0.8); Monocytes % (Auto) 8 % (0-12); Neutrophils # (Auto) 5.3 Thou/mm3 (1.8-7.7); Neutrophils % (Auto) 69 % (37-80); Nucleated Red Blood Cell # 0.00 Thou/mm3 (0.00-0.00); Nucleated Red Blood Cell % 0 /100 WBC (0); Platelet Count 138 Thou/mm3 (140-440); RDW Standard Deviation 45.9 fL (35.1-43.9); Red Blood Count 4.86 Miln/mm3 (4.50-5.90); White Blood Count 7.6 Thou/mm3 (3.8-10.6)
[2024-08-08 05:35] LABS: Glucose Estimated Average 120 mg/dL (80-131); Hemoglobin A1C 5.8 % Hgb (4.8-6.0)
[2024-08-08 05:41] LABS: Alanine Aminotransferase 55 U/L (10-49); Albumin, Serum 4.5 gm/dL (3.4-4.8); Albumin/Globulin Ratio 1.8 (1.2-2.2); Alkaline Phosphatase 93 U/L (46-116); Anion Gap 7 (7-16); Aspartate Amino Transferase 24 U/L (0-34); BUN/Creatinine Ratio 11 Ratio (12-20); Bilirubin,Total 1.2 mg/dL (0.3-1.2); Blood Urea Nitrogen 11 mg/dL (9-23); Calcium 9.4 mg/dL (8.3-10.6); Calcium (Corrected) 9.4 mg/dL (8.5-10.1); Carbon Dioxide 30.1 mMol/L (20.0-31.0); Cardiac Risk Estimate 3.4 RATIO (4.0-6.7); Chloride 106 mMol/L (98-107); Cholesterol 138 mg/dL (132-200); Creatinine (Component) 1.0 mg/dL (0.6-1.3); Estimated Creatinine Clearance 66.9 mL/min (>60); Globulin 2.5 gm/dL (2.3-3.5); Glucose 102 mg/dL (74-106); HDL Cholesterol 41 mg/dL (40-60); LDL Cholesterol,Calculated 82 mg/dL (0-130); Magnesium 1.9 mg/dL (1.6-2.6); Osmolality,Calculated 284 (275-295); Phosphorous 3.5 mg/dL (2.4-5.1); Potassium 3.9 mMol/L (3.4-5.1); Sodium 143 mMol/L (136-145); Thyroid Stimulating Hormone 2.73 uIU/mL (0.55-4.78); Total Protein 7.0 gm/dL (5.7-8.2); Triglycerides 75 mg/dL (30-150); eGFR > 60 See Note
--- NOTE | 2024-08-08 08:53 | PC.NURSE ---
Patient to er with at bedside with c/o sob x 3 days, Currently patient on 3l/nc 02 sats 95%, resp. are even and slightly labored at 24bpm. Patient denies pain, skin warm dry and pink, tech at bedside performing cardiac echo, patient awaiting bed on floor, patient and have no other needs at this time, call light within reach.
[2024-08-08] MEDS: HEPARIN SOD INJ 5000 UNIT/ML VIAL SC (09:34)
[2024-08-08] MEDS: FUROSEMIDE INJ 10 MG/ML 4ML VIAL 40 MG IVP (09:34)
--- NOTE | 2024-08-08 16:00 | ESPR_ITS ---
Documentation for date of: 08/08/24 Subjective Subjective Interval history: Patient is a 69-year-old male with a limited past medical history who may have hyperlipidemia but no medication on board. Patient presented to the emergency overnight with a chief complaint of increasing shortness of breath, increasing lower peripheral edema over the past 1 year, positive orthopnea, and nocturnal dyspnea. 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 Patient's PCP is Dr. Luke in [place]. Patient received Lasix in the emergency room and had improved peripheral edema during physical exam, patient. Continue lasix 40 mg IV daily. Strict ins and outs 2000. No output recorded overnight. Cardiology consulted, Dr. Dutta appreciate recommendations. *NPO after midnight, schedule for heart catherization on August with Dr. Dutta Exam Vital Signs Temp Pulse Resp BP Pulse Ox O2 Del Method O2 Flow Rate 97.9 F 84 24 H 120/87 H 97 Nasal Cannula 3 08/08/24 16:30 08/08/24 18:58 08/08/24 18:58 08/08/24 16:30 08/08/24 18:58 08/08/24 16:30 08/08/24 18:58 Narrative Exam General Appearance: Alert & Oriented X3, well-nourished male who is lying in bed in no acute distress HEENT: Skull symmetrical and atraumatic. Conjunctivae pink and moist. Pupils equal, round, reactive to light and accommodation (PERRL). External ear without lesion or discharge. Straight, nares patient, mucosa pink, no discharge. No thyroid nodule appreciated. No cervical lymphadenopathy. Cardio: Normal Rate and Rhythm with S1 and S2 heart sounds. Possibe systolic murmur noted. No bruits on carotid auscultation. Improved pheripheral edema. Lungs: Symmetric with good expansion. Chest and back non-tender. Breath sounds vesicular with minimal crackles. Abdomen: Non-tender, Non-distended, Normal Reactive Bowel Sounds Neuro: Alert, cooperative, oriented to person, place, and time. Speech clear. CN grossly intact. Upper motor strength 5/5 and Lower motor strength 5/5. Sensation intact. Objective Labs 08/08/24 04:39 08/08/24 04:39 Labs: Laboratory Results - last 24 hr 08/07/24 08/07/24 08/07/24 20:06 20:13 20:20 WBC RBC Hgb Hct MCV MCH MCHC RDW Std Deviation Plt Count Neut % (Auto) Lymph % (Auto) [place] % (Auto) Eos % (Auto) Baso % (Auto) Neut # (Auto) Lymph # (Auto) [place] # (Auto) Eos # (Auto) Baso # (Auto) Immature Gran # (Auto) Absolute Nucleated RBC Immature Gran % Nucleated RBC % Sodium Potassium Chloride Carbon Dioxide Anion Gap BUN Creatinine Estim Creat Clear Calc eGFR BUN/Creatinine Ratio Glucose Estimated Ave Glu mg/dL Hemoglobin A1c Calculated Osmolality Calcium Corrected Calcium Phosphorus Magnesium Total Bilirubin AST ALT Alkaline Phosphatase Troponin I < 0.020 Total Protein Albumin Globulin Albumin/Globulin Ratio Triglycerides Cholesterol LDL Cholesterol, Calc HDL Cholesterol Cholesterol/HDL Ratio TSH SARS-CoV-2 Ag (Rapid) Negative Group A Strep Rapid Negative 08/08/24 04:39 WBC 7.6 RBC 4.86 Hgb 13.6 Hct 42.7 MCV 88 MCH 28.0 MCHC 31.9 RDW Std Deviation 45.9 H Plt Count 138 L Neut % (Auto) 69 Lymph % (Auto) 19 [place] % (Auto) 8 Eos % (Auto) 3 Baso % (Auto) 1 Neut # (Auto) 5.3 Lymph # (Auto) 1.5 [place] # (Auto) 0.6 Eos # (Auto) 0.2 Baso # (Auto) 0.1 Immature Gran # (Auto) 0.01 H Absolute Nucleated RBC 0.00 Immature Gran % 0 Nucleated RBC % 0 Sodium 143 Potassium 3.9 D Chloride 106 Carbon Dioxide 30.1 Anion Gap 7 BUN 11 Creatinine 1.0 Estim Creat Clear Calc 66.9 eGFR > 60 BUN/Creatinine Ratio 11 L Glucose [address] Glu mg/dL 120 Hemoglobin A1c 5.8 Calculated Osmolality 284 Calcium 9.4 Corrected Calcium 9.4 Phosphorus 3.5 Magnesium 1.9 Total Bilirubin 1.2 AST 24 ALT 55 H Alkaline Phosphatase 93 Troponin I Total Protein 7.0 Albumin 4.5 Globulin 2.5 Albumin/Globulin Ratio 1.8 Triglycerides 75 Cholesterol 138 LDL Cholesterol, Calc 82 HDL Cholesterol 41 Cholesterol/HDL Ratio 3.4 L TSH 2.73 SARS-CoV-2 Ag (Rapid) Group A Strep Rapid Quality Measures Quality Measures none Advance care planning discussed with:: patient Assessment & Plan Assessment Current Active Medications: Generic Name Dose Route Start Last Admin Trade Name Freq PRN Reason Stop Dose Admin Acetaminophen 650 mg 08/08/24 04:05 Acetaminophen 325 Mg Tablet PO 09/07/24 04:04 Q6H PRN Pain 1-3 and/or Fever >100.1 Carvedilol 3.125 mg 08/09/24 08:00 Carvedilol 3.125 Mg Tablet PO 09/08/24 07:59 BIDWM VINAY Furosemide 40 mg 08/08/24 09:00 08/08/24 09:34 Furosemide Inj 10 Mg/Ml 4ml Vial IVP 09/07/24 08:59 40 mg QDAY VINAY Administration Ondansetron HCl 4 mg 08/08/24 04:05 Ondansetron Inj 2 Mg/Ml Inj 2 Ml IVP 09/07/24 04:04 Q6H PRN NAUSEA OR VOMITING Protocol Sacubitril/Valsartan 1 tab 08/08/24 21:00 Sacubitril 24 Mg/Valsartan 26 Mg Tablet PO 09/07/24 20:59 BID VINAY Spironolactone 25 mg 08/09/24 09:00 Spironolactone 25 Mg Tablet PO 09/08/24 08:59 DAILY VINAY Plan Is a 69-year-old male who denies any previous past medical history denies any medication for chronic medical conditions. Patient was admitted on 08/07/2024 overnight acute hypoxic respiratory failure likely secondary to new onset of CHF. #Acute hypoxic respiratory failure likely secondary to CHF exacerbation #New onset Congestive Heart Failure #CHF HFrEF 10 to 20% (08/08/2024) #Diastolic Dysfunction #Moderate to Severe LV dilation Patient presented with worsening orthopnea, needing to stop to catch his breath within a couple feet, worsening lower peripheral edema over the past year, and now PND. Patient denied history of OH or history of hypertension. EKG r waves present, no deep q waves noted. Ischemic cardio myopathy less likely, plan for right heart cath vs cardiomyopathy, denied alcohol use alochol use. denied smoking history. Patient placed on NC secondary to spO 88% in the ER. Echo (08/08/2024): Moderate to severe LV dilatation with severely reduced LVEF with an EF of 10 to 15%.Severe Global Hypokinesis. Grade 3 diastolic dysfunction.RV not visualized well. Normal RV function. Biatrial dilatation. Severe LA dilatation. Mild MAC. Trace to Mild MR. Dilated IVC. No Pericardial Effusion. Troponin: <0.02 Cxr: prominent vascular congestion, mild enlargement of cardiac contour EKG: Sinus w/ PVC and R waves QTc 445 A1c 5.8% (08/08/2024) Lipid Panel: Triglyerides 75, Cholesterol 138, LDL 82, HDL 41 NYHA Class: III ASCVD: 17.7, risk of cardiovascular event in the next 10 years. Plan: -Right heart cath AM -Lasix 40 mg IV qday -Carvedilol 3.125 mg PO BID, Entresto 1 tabelt BID, and Spironolactone -Per cardio recs, if PWP within normal limits, Lasix D/C and add Sprironolactone, cardiac catheterization dependent. -Atorvastatin 40 mg PO HS -Repeat BNP prior to discharge to obtain dry BNP -K>4 and Mg >2 -Work towards GDMT -Fluid Restriction, Daily Weight Sodium Restriction 2 g per day -SpO >90%, oxygen support PRN -Cardiology Consult, appreciate recommendations. #Mild transaminitis Mild elevation in AST 44 and ALT 66 which down trended shortly after lasix given overnight, likely in the setting of vascular congestion from acute CHF exacerbation. Fatty infiltration noted on US, maybe underlying Metabolic Dysfucntion associated steohepatisis (MASH) vs Heptitis, less likely as denied illicit drug use. Liver US (08/08/2024): Normal common bile duct, pancreatic head 3.6 cm, liver 20.0 cm with fatty infiltration. Consider CT for prominnet pancreatic head. AST 44 and ALT 66 -->(08/08/2024) Total Bilirubin 1.2, AST 24, ALT 55 (L) Plan -trend AST and ALT -Atorvastatin 40 mg PO HS -Consider Heptitis panel if worsening trend Health Maintenance: Disp: Pt is currently admitted to floors for further management of new onset of CHF, awaiting diuresis and heart catherization. FEN: Cardiac Diet, NPO after midnight, scheduled for heart catherization DVT: on subQ heparin Code: Full Code - The patient's plan was discussed with attending Dr. Steven Clemente MD PGY2 Internal Medicine Attending Provider Attestation/Addendum I have discussed and was present for the essential components of the history, physical examination, diagnosis, and treatment plan with the resident. I agree with the patient's care as documented by the resident and amended herein by me. Brennon Harris DO. Although this document has been carefully reviewed, there may still be some phonetic and other typographical errors. These errors are purely grammatical due to imperfections in the software program and should not be construed in any way to compromise the substance of the patient's medical care during this visit.
--- NOTE | 2024-08-08 20:32 | ESCONSULT_ITS ---
RE: VALERIE CARLOS : 1955 DATE OF CONSULTATION: 08/08/2024 CONSULTING PHYSICIAN: Hospitalist and resident team. REASON FOR CONSULTATION: Evaluation, acute decompensated congestive heart failure. CHIEF COMPLAINT: Shortness of breath. HISTORY OF PRESENT ILLNESS: The patient is a 69-year-old , Chinese- speaking male who apparently is in good health according to him. He sees a physician only as necessary in [place]. He has been doing well until 3 days ago, he was having severe shortness of breath, acute onset of shortness of breath, paroxysmal nocturnal dyspnea, orthopnea, has severe shortness of breath at rest and when he sits up he feels better, unable to lie flat, but denies any chest pain. He has also flutter associated with palpitations. He came to the hospital in the emergency room with severe shortness of breath, acute decompensated congestive heart failure symptoms. Chest x-ray did show mild cardiomegaly, Petros B lines and pulmonary congestion. Lasix 40 mg dose was given. He is already showing clinical improvement and feeling a little better, less orthopneic. Rest of the workup essentially normal. CBC and chemistry panel normal. Troponin level is 0.02. No evidence of myocardial infarction. EKG showed sinus rhythm, narrow QRS complex with frequent PVCs, occasional couplets. Natriuretic peptide is 467. His lipid panel is normal. Blood sugar is normal. TSH is also normal. A cardiac echocardiogram performed today that showed evidence of dilated cardiomyopathy, LV end-diastolic dimension of 6.6 cm. Ejection fraction approximately 15-20% with dilated left ventricle severe LV dysfunction. No significant valvular heart disease. ALLERGIES: None. MEDICATIONS AT HOME: Listed as hydrocodone for pain, ibuprofen, and gabapentin. PAST MEDICAL HISTORY: No history of diabetes, hypertension, or hypercholesterolemia. No previous cardiac history such as heart attack or stroke. SOCIAL HISTORY: The patient is , has family. He does not give a history of smoking. He does not drink alcoholic beverages but he did drink early in life, but no recent history of any drug use or alcohol use. FAMILY HISTORY: Most of the family members live long. No cardiac history in the family. REVIEW OF SYSTEMS: Cardiovascular: Shortness of breath, orthopnea, or PND. No chest pain. Gastrointestinal: No nausea or vomiting. Rest of review of 12-point review of systems is negative. PHYSICAL EXAMINATION: General: A well-nourished, pleasant male, alert, awake, and in no acute distress. Still somewhat orthopneic. Vital Signs: His blood pressure is 120/87. Pulse 84. Respirations 24. Temperature normal. Saturating well on 97% 3 L nasal cannula. Even on room air is saturating well. HEENT: Head is atraumatic. Neck: Supple. No JVD at rest, but hepatojugular reflex is present. Chest: Symmetrical. Lungs: Clear to auscultation. No rales or rhonchi. Heart: S1 and S2 are regular. No significant gallops or murmurs. Abdomen: Slightly obese and soft, thin. No organomegaly. Extremities: No significant edema. Initially, the patient had edema, appears to be completely resolved. DIAGNOSTIC DATA: Chest x-ray showed evidence of mild cardiomegaly, pulmonary congestion and Petros B lines present. IMPRESSION/ASSESSMENT: 1. Acutely decompensated chronic systolic heart failure, etiology undetermined, possible ischemic cardiomyopathy versus nonischemic cardiomyopathy. 2. Frequent premature ventricular contractions and couplets, ventricular dysrhythmia possibly due to low ejection fraction. DISCUSSION AND RECOMMENDATIONS: The patient is a 69-year-old male with new- onset congestive heart failure, has severe left ventricular dysfunction with severe systolic heart failure. Ejection fraction is 20%. The left ventricle is markedly dilated, suggesting that the patient definitely had a few months of cardiomyopathy and heart failure, possibly due to viral myocarditis. The patient was subject to many viral illnesses including flu in recent months, most likely diagnosed with viral myocarditis, cardiomyopathy, nonischemic dilated cardiomyopathy; however, the patient will require cardiac catheterization and coronary angiogram to rule out ischemic cardiomyopathy as an etiology for managing optimally. The patient will be recommended to have optimal medical management, GDMT, diuretics. The patient appears to be euvolemic currently, but continue Lasix 40 mg daily for now, adding spironolactone 25 mg daily. After right heart catheterization tomorrow, if the wedge pressures are normal, we will stop the diuretic Lasix and continue spironolactone. We will also add a low dose of Entresto for ARB and also a small dose of carvedilol 3.125 mg b.i.d. Depending on the heart rate and blood pressure, continue to increase the dosage of carvedilol and Entresto as tolerated. Later on as an outpatient, we can add Farxiga and other drugs. For now, we will continue present GDMT and schedule the patient for right and left heart cardiac catheterization tomorrow morning. DT: 19:13:43 TT: 20:30:00 Ref: [id number] - TID: [id number]
--- NOTE | 2024-08-08 21:07 | PC.NURSE ---
Pt placed supine / flat for 20 min as per MD Pierce Dutta, pt tolerted well with O2 saturation over 95% for duration of trial. Pt did not complain of any discomfort or SOB
[2024-08-09] VITALS (23 sets, daily range): BP systolic 86–123; BP diastolic 56–75; PULSE 58–89; RESP 14–23; TEMP 36.1–36.8; O2SAT 92–98
[2024-08-09 05:54] LABS: Basophils # (Auto) 0.0 Thou/mm3 (0.0-0.2); Basophils % (Auto) 1 % (0-2.5); Eosinophils # (Auto) 0.1 Thou/mm3 (0.0-0.5); Eosinophils % (Auto) 2 % (0-10); Hematocrit 48.8 % (41.0-53.0); Hemoglobin 15.7 g/dL (13.5-16.0); Immature Granulocytes Auto 0.02 Thou/mm3 (0.00-0.00); Lymphocytes # (Auto) 1.1 Thou/mm3 (1.0-4.8); Lymphocytes % (Auto) 14 % (10-50); Mean Corpuscular HGB Conc 32.2 g/dl (31.0-37.0); Mean Corpuscular Hemoglobin 27.8 pg (25.0-35.0); Mean Corpuscular Volume 87 fL (80-100); Monocytes # (Auto) 0.7 Thou/mm3 (0.0-0.8); Monocytes % (Auto) 10 % (0-12); Neutrophils # (Auto) 5.3 Thou/mm3 (1.8-7.7); Neutrophils % (Auto) 73 % (37-80); Nucleated Red Blood Cell # 0.00 Thou/mm3 (0.00-0.00); Nucleated Red Blood Cell % 0 /100 WBC (0); Platelet Count 176 Thou/mm3 (140-440); RDW Standard Deviation 44.5 fL (35.1-43.9); Red Blood Count 5.64 Miln/mm3 (4.50-5.90); White Blood Count 7.3 Thou/mm3 (3.8-10.6)
[2024-08-09 06:32] LABS: Alanine Aminotransferase 50 U/L (10-49); Albumin, Serum 4.5 gm/dL (3.4-4.8); Albumin/Globulin Ratio 1.6 (1.2-2.2); Alkaline Phosphatase 102 U/L (46-116); Anion Gap 8 (7-16); Aspartate Amino Transferase 23 U/L (0-34); BUN/Creatinine Ratio 15 Ratio (12-20); Bilirubin,Total 1.4 mg/dL (0.3-1.2); Blood Urea Nitrogen 17 mg/dL (9-23); Calcium 9.5 mg/dL (8.3-10.6); Calcium (Corrected) 9.5 mg/dL (8.5-10.1); Carbon Dioxide 32.3 mMol/L (20.0-31.0); Chloride 103 mMol/L (98-107); Creatinine (Component) 1.1 mg/dL (0.6-1.3); Estimated Creatinine Clearance 62.0 mL/min (>60); Globulin 2.8 gm/dL (2.3-3.5); Glucose 94 mg/dL (74-106); Magnesium 2.1 mg/dL (1.6-2.6); Osmolality,Calculated 286 (275-295); Phosphorous 4.1 mg/dL (2.4-5.1); Potassium 3.6 mMol/L (3.4-5.1); Sodium 143 mMol/L (136-145); Total Protein 7.3 gm/dL (5.7-8.2); eGFR > 60 See Note
--- NOTE | 2024-08-09 11:20 | PC.SS ---
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 SS to follow up with patient.
--- NOTE | 2024-08-09 13:42 | ESPR_ITS ---
<Statement entered by Sri Dutta MD - 08/11/24 18:44> I evaluated patient examined postprocedure patient had no complication underwent cardiac catheterization showed nonischemic cardiomyopathy chronic systolic heart failure ejection fraction 20% normal coronary arteries. Patient can be discharged home tomorrow if he remains stable on guideline directed medical management including Entresto beta-josé miguel diuretic spironolactone we will see him for follow-up as an outpatient evaluate the patient with resident physician Dr. Erica Coates agree with the treatment plan recommendation Documentation for date of: 08/09/24 Subjective Subjective Interval history: Patient seen and examined this morning. Patient is net -1460 mL in the last 24 hours, blood pressure 113/68 currently saturating 96% on 3 L of oxygen via nasal cannula. Patient denies any shortness of breath, chest pain or palpitations. Patient states the orthopnea is slightly improving. Patient underwent right and left cardiac cath and the findings were within normal limits with patent vessels and PCWP is found to be within normal limits. Labs show mild contraction alkalosis with bicarb of 32.3 therefore we will decrease Lasix to 20 mg daily and will continue the remainder of GDMT. Exam Vital Signs Temp Pulse Resp BP Pulse Ox O2 Del Method O2 Flow Rate 97.1 F 63 18 91/67 92 L Nasal Cannula 4 08/09/24 12:35 08/09/24 13:15 08/09/24 13:15 08/09/24 13:15 08/09/24 13:15 08/09/24 13:15 08/09/24 13:15 Narrative Exam GENERAL: A&Ox3 . Awake, Not in acute distress. Saturating 96% on 3 L oxygen via nasal cannula NEURO: no focal neurological deficits HEENT: Atraumatic, Normocephalic. mucous membranes moist. Eyes open, symmetrical, & clear HEART: Normal Heart Sounds LUNGS: Clear to auscultation with no wheezing or crackles. ABDOMEN: soft, non-distended, non-tender, bowel sounds heard, no guarding or rebound tenderness SKIN: No Rash or ecchymoses EXTREMITIES: No edema, tenderness, able to move all 4 extremities, pedal pulses palpated Objective Labs 08/09/24 05:13 08/09/24 05:13 Labs: Laboratory Results - last 24 hr 08/09/24 05:13 WBC 7.3 RBC 5.64 Hgb 15.7 D Hct 48.8 MCV 87 MCH 27.8 MCHC 32.2 RDW Std Deviation 44.5 H Plt Count 176 D Neut % (Auto) 73 Lymph % (Auto) 14 [place] % (Auto) 10 Eos % (Auto) 2 Baso % (Auto) 1 Neut # (Auto) 5.3 Lymph # (Auto) 1.1 [place] # (Auto) 0.7 Eos # (Auto) 0.1 Baso # (Auto) 0.0 Immature Gran # (Auto) 0.02 H Absolute Nucleated RBC 0.00 Immature Gran % 0 Nucleated RBC % 0 Sodium 143 Potassium 3.6 Chloride 103 Carbon Dioxide 32.3 H Anion Gap 8 BUN 17 Creatinine 1.1 Estim Creat Clear Calc 62.0 eGFR > 60 BUN/Creatinine Ratio 15 Glucose 94 Calculated Osmolality 286 Calcium 9.5 Corrected Calcium 9.5 Phosphorus 4.1 Magnesium 2.1 Total Bilirubin 1.4 H AST 23 ALT 50 H Alkaline Phosphatase 102 Total Protein 7.3 Albumin 4.5 Globulin 2.8 Albumin/Globulin Ratio 1.6 Quality Measures Quality Measures none Advance care planning discussed with:: patient Assessment & Plan Assessment Current Active Medications: Generic Name Dose Route Start Last Admin Trade Name Freq PRN Reason Stop Dose Admin Acetaminophen 650 mg 08/08/24 04:05 Acetaminophen 325 Mg Tablet PO 09/07/24 04:04 Q6H PRN Pain 1-3 and/or Fever >100.1 Atorvastatin Calcium 40 mg 08/09/24 21:00 Atorvastatin Calcium 20 Mg Tablet PO 09/08/24 20:59 HS VINAY Carvedilol 3.125 mg 08/09/24 08:00 08/09/24 07:30 Carvedilol 3.125 Mg Tablet PO 09/08/24 07:59 3.125 mg BIDWM VINAY Administration Furosemide 40 mg 08/08/24 09:00 08/09/24 12:12 Furosemide Inj 10 Mg/Ml 4ml Vial IVP 09/07/24 08:59 Not Given QDAY VINAY Ondansetron HCl 4 mg 08/08/24 04:05 Ondansetron Inj 2 Mg/Ml Inj 2 Ml IVP 09/07/24 04:04 Q6H PRN NAUSEA OR VOMITING Protocol Sacubitril/Valsartan 1 tab 08/08/24 21:00 08/09/24 12:13 Sacubitril 24 Mg/Valsartan 26 Mg Tablet PO 09/07/24 20:59 Not Given BID VINAY Spironolactone 25 mg 08/09/24 09:00 08/09/24 12:13 Spironolactone 25 Mg Tablet PO 09/08/24 08:59 Not Given DAILY VINAY Plan Mr. Macdonald is a 69-year-old Indian-speaking male with no significant past medical history presented to the ED complaining of worsening shortness of breath on exertion and at rest, paroxysmal Nocturnal dyspnea and orthopnea. #Acute on chronic decompensated congestive heart failure #Severe systolic dysfunction, EF 10-15% #Grade 3 diastolic dysfunction -On admission patient complains of severe shortness of breath, orthopnea and PND, unable to lie flat. Despite IV diuretics patient continues to have shortness of breath at rest. On physical examination patient had 3+ pitting edema which has since resolved with IV diuretics. -Echo done on 08/08/24: Moderate to severe LV dilatation with severely reduced LVEF with an EF of 10 to 15%. Severe Global Hypokinesis. Grade 3 diastolic dysfunction. RV not visualized well. Normal RV function. Biatrial dilatation. Severe LA dilatation. Mild MAC. Trace to Mild MR. Dilated IVC. No Pericardial Effusion. Right and Left Cardiac cath done on 08/09/24- with Dr. Dutta No blockage found, PCWP is within normal limits - therefore patient likely has nonischemic cardiomyopathy causes may include viral myocarditis or idiopathic cardiomyopathy Plan: -Continue GDMT as patient is tolerating it well: Continue Lasix 20 mg daily, Entresto 1 tablet twice daily, carvedilol 3.125 mg twice daily and spironolactone 25 mg daily -Sodium restriction to 2 g daily -Strict I's and O's -Daily weights -Fluid restriction 2000ml daily Assessment and plan discussed with attending physician Dr. Tra Coates (PGY-2)- Internal medicine resident
--- NOTE | 2024-08-09 14:30 | ESOP_ITS ---
RE: VALERIE CARLOS : 1955 DATE OF OPERATION: 08/09/2024 PROCEDURE PERFORMED: 1. Diagnostic right and left heart cardiac catheterization, selective coronary angiogram, left ventricular angiogram, CPT 04280. 2. Conscious sedation 30 minute duration. 3. Ultrasound guided access of right radial artery. DIAGNOSES: Ischemic versus nonischemic cardiomyopathy, acute on chronic systolic heart failure, new onset congestive heart failure, cardiomyopathy. HISTORY AND INDICATIONS: The patient is a 69-year-old male with history of diabetes mellitus, hypercholesterolemia, who has had progressive shortness of breath over the last few days with severe shortness of breath, orthopnea, and paroxysmal nocturnal dyspnea. He came to the hospital with acutely decompensated congestive heart failure, systolic heart failure, ejection fraction by cardiac echo only 15-20%, severe global hypokinesis, mild tricuspid regurgitation. Hence right and left heart cardiac catheterization, coronary angiogram was recommended to assess if the patient has significant ischemic heart disease as the cause of his symptoms and for optimization of medical management. DESCRIPTION OF PROCEDURE: The patient was brought to the cardiac catheterization laboratory where he was given 2 mg Versed and 50 mcg of fentanyl for sedation. Right radial approach was taken for the left arterial catheterization. Right radial artery cannulated by micropuncture technique and a 6-[place] Glidesheath introduced. Right femoral vein was cannulated with micropuncture technique and 7-[place] sheath was introduced. Selective right heart catheterization was performed with a Harrold-Jewel catheter. Right heart pressures were recorded. Subsequently, left heart catheterization was performed by 5-[place] TIG-4 diagnostic catheter and selective right and left coronary angiogram performed by 5-[place] TIG 4 diagnostic catheter. The patient tolerated the procedure well. No complications. Coronary angiogram showed following findings. HEMODYNAMICS: TR band applied. Hemostasis was secured. Left ventricular pressure is 86/10. Aortic pressure is 90/50. No gradient across the aortic valve. Left ventricular angiogram showed evidence of severe global hypokinesis. Ejection fraction is 20%. Coronary angiogram showed following findings: Right coronary artery. Right heart pressure __ PA pressure is found to be 21/11. PA wedge pressure is 10 mmHg. Right ventricular pressure is 21/3, right atrial pressure is 9 mmHg. Coronary angiogram showed following findings: Right coronary artery is large and dominant giving PDA and PL branches, appeared normal. No significant CAD detected. Left coronary system. Left main coronary is normal. Left anterior descending artery is normal. Circumflex is normal_ all of them appeared normal, free of disease. SUMMARY OF FINDINGS AND SUGGESTIONS 1. Nonischemic cardiomyopathy - dilated cardiomyopathy, idiopathic. 2. Normal nonobstructive epicardial coronary arteries. 3. Normal right heart pressures and normal left ventricular filling pressures and normal wedge pressures, well-treated heart failure. 4. Severe LV dysfunction, ejection fraction 20%. RECOMMENDATIONS: The patient is recommended to continue guideline-directed GDMT, medical management. Diuretic dose should be reduced to 20 mg of furosemide daily along with 25 mg of spironolactone for maintenance along with optimized medical management with carvedilol 3.125 mg twice daily, Entresto 24/ one tablet twice daily. Keep him another day in the hospital. Once he feels well, tomorrow discharge home on these medications. I will see him for followup in one week following discharge. If the patient remains after 3 months of guideline-directed medical management, the patient's high risk for sudden , will be recommended to have ICD implantation with prevention of sudden cardiac , but the patient needs to wait at least 90 days of guideline- directed medical management and repeat a cardiac echo at that time for assessment of ejection fraction. The patient does have PVCs and couplets, but no VT. Hence, no need for immediate external defibrillator, but ICD implantation should be considered in 90 days following discharge, which I will decide after discharge. He will see me in the office in one week. DT: 12:59:06 TT: 13:47:00 Ref: [id number] - TID: [id number] [facility]
--- NOTE | 2024-08-09 14:50 | PC.SS ---
Rounding note: patient is pending cardio cath. Not ready for d/c today.
--- NOTE | 2024-08-09 14:59 | PC.NURSE ---
Report given to ETHEL Driscoll. Pt VSS. Dressing to right wrist and right groin clean, dry, and intact. No signs of bleeding.
--- NOTE | 2024-08-09 15:03 | PC.NURSE ---
PT BROUGHT BACK FROM DIRECTOR OF AGRICULTURE AT 1451. A/O X4, COOPERATIVE AND VERBALIZES UNDERSTANDING OF SITUATION
--- NOTE | 2024-08-09 15:37 | PC.SS ---
Initial assessment: patient is a 69-year old male admitted for CHF. Patient is Rwandan speaking. Alert and oriented. Patient confirmed demographic info. Patient informs he lives with granddaughter, Rosie. Per patient he does not require and use of DME at home and able to ambulate without issues. Patient informs his PCP is Cayla Pineda. Pharmacy of choice is [facility] in [place]. Patient informs his discharge plan is to return home and family is able to transport him home. Patient indicates his daughter, Clementina Macdonald could be contacted for emergencies if necessary. Patient provided with community resource handout. D/c plan: Home Next of kin: Daughter, Clementina [phone]
--- NOTE | 2024-08-09 18:10 | PD.RESPRO ---
Documentation for date of: 08/09/24 Subjective Subjective Interval history: Patient is a 69-year-old male with a limited past medical history who may have hyperlipidemia and new diagnosis of severe LV dysfunction, EF 20%. Danis is schedule for R/L heart catherizaiton with Dr. Dutta. Brianna denied any pain to entry site and denied any chest pain, shortness of breath or palpitaiotns. Minimal trace edema. GDMT started including Entresto, Spirnolactone, and Carvedilol. Brianna's lasix IV transitioned to oral. Exam Vital Signs Temp Pulse Resp BP Pulse Ox O2 Del Method O2 Flow Rate 97.0 F 61 15 95/65 94 L Nasal Cannula 1 08/09/24 17:03 08/09/24 17:07 08/09/24 17:03 08/09/24 17:08/09/24 17:03 08/09/24 15:00 08/09/24 15:00 Narrative Exam General Appearance: Alert & Oriented X3, well-nourished male who is lying in bed in no acute distress HEENT: Skull symmetrical and atraumatic. Conjunctivae pink and moist. Pupils equal, round, reactive to light and accommodation (PERRL). External ear without lesion or discharge. Straight, nares patient, mucosa pink, no discharge. No thyroid nodule appreciated. No cervical lymphadenopathy. Cardio: Normal Rate and Rhythm with S1 and S2 heart sounds. Possibe systolic murmur noted. No bruits on carotid auscultation. Improved pheripheral edema. Lungs: Symmetric with good expansion. Chest and back non-tender. Breath sounds vesicular with minimal crackles. Abdomen: Non-tender, Non-distended, Normal Reactive Bowel Sounds Neuro: Alert, cooperative, oriented to person, place, and time. Speech clear. CN grossly intact. Upper motor strength 5/5 and Lower motor strength 5/5. Sensation intact. Objective Labs 08/10/24 05:18 08/10/24 05:18 Labs: Laboratory Results - last 24 hr 08/09/24 05:13 WBC 7.3 RBC 5.64 Hgb 15.7 D Hct 48.8 MCV 87 MCH 27.8 MCHC 32.2 RDW Std Deviation 44.5 H Plt Count 176 D Neut % (Auto) 73 Lymph % (Auto) 14 [place] % (Auto) 10 Eos % (Auto) 2 Baso % (Auto) 1 Neut # (Auto) 5.3 Lymph # (Auto) 1.1 [place] # (Auto) 0.7 Eos # (Auto) 0.1 Baso # (Auto) 0.0 Immature Gran # (Auto) 0.02 H Absolute Nucleated RBC 0.00 Immature Gran % 0 Nucleated RBC % 0 Sodium 143 Potassium 3.6 Chloride 103 Carbon Dioxide 32.3 H Anion Gap 8 BUN 17 Creatinine 1.1 Estim Creat Clear Calc 62.0 eGFR > 60 BUN/Creatinine Ratio 15 Glucose 94 Calculated Osmolality 286 Calcium 9.5 Corrected Calcium 9.5 Phosphorus 4.1 Magnesium 2.1 Total Bilirubin 1.4 H AST 23 ALT 50 H Alkaline Phosphatase 102 Total Protein 7.3 Albumin 4.5 Globulin 2.8 Albumin/Globulin Ratio 1.6 Quality Measures Quality Measures none Advance care planning discussed with:: patient Assessment & Plan Assessment Current Active Medications: Generic Name Dose Route Start Last Admin Trade Name Freq PRN Reason Stop Dose Admin Acetaminophen 650 mg 08/08/24 04:05 Acetaminophen 325 Mg Tablet PO 09/07/24 04:04 Q6H PRN Pain 1-3 and/or Fever >100.1 Atorvastatin Calcium 40 mg 08/09/24 21:00 Atorvastatin Calcium 20 Mg Tablet PO 09/08/24 20:59 HS VINAY Carvedilol 3.125 mg 08/09/24 17:15 08/09/24 17:07 Carvedilol 3.125 Mg Tablet PO 09/08/24 17:14 3.125 mg BIDWM VINAY Administration Furosemide 20 mg 08/10/24 09:00 Furosemide Inj 10 Mg/Ml Vial 2 Ml IVP 09/09/24 08:59 QDAY VINAY Ondansetron HCl 4 mg 08/08/24 04:05 Ondansetron Inj 2 Mg/Ml Inj 2 Ml IVP 09/07/24 04:04 Q6H PRN NAUSEA OR VOMITING Protocol Sacubitril/Valsartan 1 tab 08/08/24 21:00 08/09/24 12:13 Sacubitril 24 Mg/Valsartan 26 Mg Tablet PO 09/07/24 20:59 Not Given BID VINAY Spironolactone 25 mg 08/09/24 09:00 08/09/24 12:13 Spironolactone 25 Mg Tablet PO 09/08/24 08:59 Not Given DAILY VINAY Plan Is a 69-year-old male who denies any previous past medical history denies any medication for chronic medical conditions. Patient was admitted on 08/07/2024 overnight acute hypoxic respiratory failure likely secondary to new onset of CHF. #Acute hypoxic respiratory failure likely secondary to CHF exacerbation #New onset Congestive Heart Failure #CHF HFrEF 10 to 20% (08/08/2024) #Diastolic Dysfunction Grade III #Severe LV Dysfunction, EF of 20% Patient presented with worsening orthopnea, needing to stop to catch his breath within a couple feet, worsening lower peripheral edema over the past year, and now PND. Patient denied history of MN or history of hypertension. EKG r waves present, no deep q waves noted. Ischemic cardio myopathy less likely, plan for right heart cath vs cardiomyopathy, denied alcohol use alochol use. denied smoking history. Patient placed on NC secondary to spO 88% in the ER. Right and Left Heart Cath 1. Nonischemic cardiomyopathy - dilated cardiomyopathy, idiopathic. 2. Normal nonobstructive epicardial coronary arteries. 3. Normal right heart pressures and normal left ventricular filling pressures and normal wedge pressures, well-treated heart failure. 4. Severe LV dysfunction, ejection fraction 20%. Echo (08/08/2024): Moderate to severe LV dilatation with severely reduced LVEF with an EF of 10 to 15%.Severe Global Hypokinesis. Grade 3 diastolic dysfunction.RV not visualized well. Normal RV function. Biatrial dilatation. Severe LA dilatation. Mild MAC. Trace to Mild MR. Dilated IVC. No Pericardial Effusion. Troponin: <0.02 Cxr: prominent vascular congestion, mild enlargement of cardiac contour EKG: Sinus w/ PVC and R waves QTc 445 A1c 5.8% (08/08/2024) Lipid Panel: Triglyerides 75, Cholesterol 138, LDL 82, HDL 41 NYHA Class: III ASCVD: 17.7, risk of cardiovascular event in the next 10 years. Plan: -Lasix 40 mg IV qday, reduced to Lasix 40 mg ORAL ONCE DAILY -Carvedilol 3.125 mg PO BID, Entresto 1 tabelt BID, and Spironolactone -Please hold if GDMT if MAP <65 -Atorvastatin 40 mg PO HS -Repeat BNP prior to discharge to obtain dry BNP -K>4 and Mg >2 -Work towards GDMT -Fluid Restriction, Daily Weight Sodium Restriction 2 g per day -SpO >90%, oxygen support PRN -Cardiology Consult, appreciate recommendations. #Mild transaminitis, improving Mild elevation in AST 44 and ALT 66 which down trended shortly after lasix given overnight, likely in the setting of vascular congestion from acute CHF exacerbation. Fatty infiltration noted on US, maybe underlying Metabolic Dysfucntion associated steohepatisis (MASH) vs Heptitis, less likely as denied illicit drug use. Liver US (08/08/2024): Normal common bile duct, pancreatic head 3.6 cm, liver 20.0 cm with fatty infiltration. Consider CT for prominnet pancreatic head. AST 44 and ALT 66 -->(08/08/2024) Total Bilirubin 1.2, AST 24, ALT 55 (L) Plan -trend AST and ALT -Atorvastatin 40 mg PO HS -Consider Heptitis panel if worsening trend #Mild Contraction Alkalosis Likely secondary to lasix 40 mg IV qday, which was reduced to Lasix 40 PO Qday. Health Maintenance: Disp: Pt is currently admitted to floors for further management of new onset of CHF, awaiting diuresis. FEN: Cardiac Diet DVT: on subQ heparin Code: Full Code - The patient's plan was discussed with attending Dr. Venita Clemente MD PGY2 Internal Medicine Attending Provider Attestation/Addendum 69-year-old male with no previous medical history who presented to the ER with complaints of shortness of breath and dyspnea on exertion. Furthermore, patient has been endorsing shortness of breath with orthopnea and paroxysmal nocturnal dyspnea. In the ER, patient was noted to have acute hypoxic respiratory failure requiring supplemental oxygen and x-ray significant for vascular congestion and subsequently started on IV diuretic therapy for presumed new onset CHF. During course of hospitalization, patient underwent echocardiogram with findings of EF of 20% and subsequently patient underwent left heart cath with findings of nonischemic cardiomyopathy. As of now, plan to continue IV diuretic therapy and anticipate discharge in the next 24 hours.I reviewed above note and agree with findings and plans. I have also personally examined the patient with medicine team and went over assessment and plan with medical team including application development intern and resident physician.
--- NOTE | 2024-08-09 19:41 | PC.NURSE ---
Addendum entered by Dagoberto Mulligan RN 08/09/24 19:44: Dr. Nunez made aware of patients pain. Dr. Nunez will put an order in for pain meds. Original Note: Patient complaining of pain in the right arm where the heart cath was inserted. Patient rates the pain as 9/10. Patient only has tylenol PRN on board for pain. ETHEL Arenas will call hospitalists if they want to order different pain meds.
[2024-08-09] MEDS: MORPHINE SULF INJ 10 MG/ML VIAL IVP (20:00)
[2024-08-09] MEDS: ATORVASTATIN CALCIUM 20 MG TABLET 40 MG PO (20:27)
[2024-08-10] VITALS (8 sets, daily range): BP systolic 99–107; BP diastolic 56–65; PULSE 54–82; RESP 16–25; TEMP 36.1–37.5; O2SAT 94–96; BMI 33.5
--- NOTE | 2024-08-10 00:05 | PC.NURSE ---
Dr. Spear and Dr. Nunez made aware that patients monitor tech is showing trigeminy. Dr. Spear and Dr. Stark said to monitor as patient had them before.
[2024-08-10 06:44] LABS: Basophils # (Auto) 0.1 Thou/mm3 (0.0-0.2); Basophils % (Auto) 1 % (0-2.5); Eosinophils # (Auto) 0.1 Thou/mm3 (0.0-0.5); Eosinophils % (Auto) 1 % (0-10); Hematocrit 47.2 % (41.0-53.0); Hemoglobin 15.2 g/dL (13.5-16.0); Immature Granulocytes Auto 0.04 Thou/mm3 (0.00-0.00); Lymphocytes # (Auto) 1.0 Thou/mm3 (1.0-4.8); Lymphocytes % (Auto) 11 % (10-50); Mean Corpuscular HGB Conc 32.2 g/dl (31.0-37.0); Mean Corpuscular Hemoglobin 28.1 pg (25.0-35.0); Mean Corpuscular Volume 87 fL (80-100); Monocytes # (Auto) 1.0 Thou/mm3 (0.0-0.8); Monocytes % (Auto) 10 % (0-12); Neutrophils # (Auto) 7.5 Thou/mm3 (1.8-7.7); Neutrophils % (Auto) 78 % (37-80); Nucleated Red Blood Cell # 0.00 Thou/mm3 (0.00-0.00); Nucleated Red Blood Cell % 0 /100 WBC (0); Platelet Count 181 Thou/mm3 (140-440); RDW Standard Deviation 45.3 fL (35.1-43.9); Red Blood Count 5.41 Miln/mm3 (4.50-5.90); White Blood Count 9.6 Thou/mm3 (3.8-10.6)
--- NOTE | 2024-08-10 06:44 | PC.NURSE ---
orthopaedic technologist called saying that patient is having trigeminy, bigeminy, and couplets. Will pass on to day nurse.
[2024-08-10 07:11] LABS: Alanine Aminotransferase 36 U/L (10-49); Albumin, Serum 4.3 gm/dL (3.4-4.8); Albumin/Globulin Ratio 1.7 (1.2-2.2); Alkaline Phosphatase 95 U/L (46-116); Anion Gap 10 (7-16); Aspartate Amino Transferase 18 U/L (0-34); BUN/Creatinine Ratio 22 Ratio (12-20); Bilirubin,Total 1.4 mg/dL (0.3-1.2); Blood Urea Nitrogen 26 mg/dL (9-23); Calcium 9.1 mg/dL (8.3-10.6); Calcium (Corrected) 9.1 mg/dL (8.5-10.1); Carbon Dioxide 30.0 mMol/L (20.0-31.0); Chloride 101 mMol/L (98-107); Creatinine (Component) 1.2 mg/dL (0.6-1.3); Estimated Creatinine Clearance 56.7 mL/min (>60); Globulin 2.6 gm/dL (2.3-3.5); Glucose 95 mg/dL (74-106); Magnesium 2.2 mg/dL (1.6-2.6); Osmolality,Calculated 285 (275-295); Phosphorous 3.5 mg/dL (2.4-5.1); Potassium 3.6 mMol/L (3.4-5.1); Sodium 141 mMol/L (136-145); Total Protein 6.9 gm/dL (5.7-8.2); eGFR > 60 See Note
[2024-08-10] MEDS: FUROSEMIDE INJ 10 MG/ML VIAL 2 ML 20 MG IVP (08:33)
[2024-08-10] MEDS: SPIRONOLACTONE 25 MG TABLET PO (08:34)
[2024-08-10] MEDS: POTASSIUM CHLORIDE 10% 20 MEQ/15 ML UDC 40 MEQ PO (08:36)
--- NOTE | 2024-08-10 13:48 | PD.RESDS ---
Planned Discharge Date 08/10/24 DS: Providers Provider Date of admission: 08/08/24 04:05 Primary care physician: Cayla Pineda MD Admitting Provider: Magan Vance MD Attending Provider on Admission: Robin Nathan MD Consults: 08/08/24 11:31 Health Equity Referral - Knowledge Deficit Routine Comment: Positive screening for knowledge deficit needs. 08/08/24 18:13 Consult to Cardiology Routine Comment: Consulting Provider: Sri Dutta Attending Provider on DC: Kelin Dhaliwal Discharging Provider: Kelin Dhaliwal Anticipated date of discharge: 08/10/24 Hospital Course Hospital Course Hospital course: Summary: Patient is a 69 year old male patient with no significant past medical history who originally presented to the ED on 08/07 with a two day history of orthopnea and one week history of BLE edema who was an overnight admit for new CHF. ED Course: Patient originally presented to the ED on 08/07 with a two day history of orthopnea and one week history of BLE edema. Patient denied chest pain and palpations. No previous similar episodes were noted. Pertinent labs include: BNP 467, troponin less 0.02, AST 44, and ALT 66. EKGs demonstrated sinus rhythm with multiple PVCs. CXR demonstrated findings consistent with mild CHF. Medications administered include: Lasix 20 mg PO x 1. Hospital Course: Patient was an overnight admit 08/07 for new CHF. Patient is now status post echo and right and left heart cath. Heart cath demonstrated global hypokinesis with estimated EF less than 20 percent with normal pressures in all heart chambers and no evidence of significant coronary artery disease. Liver ultrasound demonstrated normal hepatic findings and pancreatic head enlargment with recommendation made for abdominal CT. Pertinent labs include: CrCl 56.7, BUN 22, AST 18, and ALT 36. Patient continued to demonstrate improvement in shortness of breath and BLE. Per cardiology recommendation, patient was started on GDMT for HfREF, including: Carvedilol 3.125 mg BID, Entresto, and Spironolactone 25 mg PO QD. Patient's Lasix 20 mg IVP QD transitioned to Lasix 20 mg PO QD. Patient will resume home medications upon discharge. Patient is stable and at baseline. Instructions: Please take all new medication as prescribed Please limit fluid intake to 2 liters per day and limit salt intake to 2 grams per day -Please follow up with your primary care provider within one week of discharge -If your symptoms worsen,please seek immediate medical attention and return to your nearest emergency room -If you do not have a primary care provider, you may follow up at the [facility] at [address] [place] [address] [address], [place] [address], #Acute hypoxic respiratory failure likely secondary to CHF exacerbation #New onset Congestive Heart Failure #CHF HFrEF 10 to 20% (08/08/2024) #Diastolic Dysfunction #Moderate to Severe LV dilation #Mild trasaminitis Case discussed with Dr. Nathan and Senior resident Dr. Chyna Nogueira, MS-4 - The patient's plan was discussed with attending Dr.Obad Raina Clemente MD PGY2 Internal Medicine Status at Discharge Cognitive/behavioral status at discharge: Patient is AO x 4. Time Spent with Patient Time attestation: Total time spent providing and/or coordinating discharge services: at least 30 minutes of care and coordination Time spent: Greater than 30 minutes Exam Vital Signs Temp Pulse Resp BP Pulse Ox O2 Del Method O2 Flow Rate 97.1 F 74 16 99/65 95 Room Air 2 08/10/24 12:00 08/10/24 12:00 08/10/24 12:00 08/10/24 12:08/10/24 12:08/10/24 12:08/10/24 08:00 Narrative Exam General Appearance: Alert & Oriented X3, well-nourished male who is lying in bed in no acute distress. HEENT: Skull symmetrical and atraumatic. Conjunctivae pink and moist. Pupils equal, round, reactive to light and accommodation (PERRL). External ear without lesion or discharge. Straight, nares patient, mucosa pink, no discharge. No thyroid nodule appreciated. No cervical lymphadenopathy. Cardio: Normal Rate and Rhythm with S1 and S2 heart sounds. No murmurs or extra heart sounds auscultated. No bruits on carotid auscultation. No peripheral edema or cyanosis. Lungs: Symmetric with good expansion. Chest and back non-tender. Breath sounds vesicular without crackles, wheezing or rhonchi Abdomen: Non-tender, Non-distended, Normal Reactive Bowel Sounds Neuro: Alert, cooperative, oriented to person, place, and time. Speech clear. CN grossly intact. Upper motor strength 5/5 and Lower motor strength 5/5. Sensation intact. Discharge Plan Plan Patient Disposition: HOME (Self Care) Patient condition on transfer: Stable Care Plan Goals: Instructions: Please take all new medication as prescribed Please limit fluid intake to 2 liters per day and limit salt intake to 2 grams per day -Please follow up with your primary care provider within one week of discharge -If your symptoms worsen,please seek immediate medical attention and return to your nearest emergency room -If you do not have a primary care provider, you may follow up at the [facility] at [facility] [address], [place] [address], Prescriptions/Referrals Prescriptions/Med Rec: New atorvastatin 20 mg Tablet 40 mg PO HS 30 Days Qty: 60 1RF spironolactone 25 mg Tablet 25 mg PO DAILY 30 Days Qty: 30 1RF carvedilol 3.125 mg Tablet 3.125 mg PO BIDWM 30 Days Qty: 90 0RF Entresto 24-26 mg Tablet 1 tab PO BID 30 Days Qty: 60 0RF furosemide [Lasix] 20 mg tablet 20 mg PO QDAY 30 Days Qty: 30 1RF Referrals: Cayla Pineda MD [Primary Care Provider] - Sri Dutta MD [Physician] - Patient/Caregiver Discharge Instructions Meds to Beds: No Discharge Activity: as per physical therapy Print Language: Romanian Stand Alone Forms: [employer] Info., Patient Portal Info Letter Discharge Order Discharge Orders: Discharge (Routine); Ordered 08/10/24 Ordered By: Raina Clemente Quality Discharge Quality Measures none MD Attestestation MD Attestation I have discussed and was present for the essential components of the history, physical examination, diagnosis, and treatment plan with the resident. I agree with the patient's care as documented by the resident and amended herein by me. Robin Nathan MD. Although this document has been carefully reviewed, there may still be some phonetic and other typographical errors. These errors are purely grammatical due to imperfections in the software program and should not be construed in any way to compromise the substance of the patient's medical care during this visit.
--- NOTE | 2024-08-10 16:28 | PC.SS ---
SS unable to meet with pt before discharge; confirmed pt had everything needed before going home
--- NOTE | 2024-08-10 16:40 | ESDS_ITS ---
<Statement entered by Robin Nathan MD - 08/16/24 14:55> I reviewed above note and agree with findings and plans. I have also personally examined the patient with medicine team and went over assessment and plan with medical team including sourcing internship and resident physician. Planned Discharge Date 08/10/24 DS: Providers Provider Date of admission: 08/08/24 04:05 Primary care physician: Cayla Pineda MD Admitting Provider: Magan Vance MD Attending Provider on Admission: Robin Nathan MD Consults: 08/08/24 11:31 Health Equity Referral - Knowledge Deficit Routine Comment: Positive screening for knowledge deficit needs. 08/08/24 18:13 Consult to Cardiology Routine Comment: Consulting Provider: Sri Dutta Attending Provider on DC: Raina Clemente MD Discharging Provider: Raina Clemente MD DS: Diagnosis Problem List Completed Was Problem List Reviewed/Reconciled?: Yes Hospital Course Hospital Course Hospital course: Brianna is a 69 year old male with a past medical history of hyperlipidemia who was admitted with a chief complain of acute hypoxic respiratory failure secondary to new onset of congestive heart failure-CHF HFrEF 10% to 20%, diastolic dysfunction grade III, and sever LV Dysfunction. Patient started on new medication. ED Course: Patient originally presented to the ED on 08/07 with a two day history of orthopnea and one week history of BLE edema. Patient denied chest pain and palpations. No previous similar episodes were noted. Pertinent labs include: BNP 467, troponin less 0.02, AST 44, and ALT 66. EKGs demonstrated sinus rhythm with multiple PVCs. CXR demonstrated findings consistent with mild CHF. Medications administered include: Lasix 20 mg PO x 1. Hospital Course: During hospital course, cardiology was consulted given concern for echo noted to show severely reduced LVEF with an EF of to 15%, severe global hypokinesis, grade 3 diastolic dysfunction. Recommended to do right and left heart cardiac catheterization on 08/09/2024. Resulted noted to show non-ischemic cardiomyopathy dilated cardiomyopathy, normal nonobstructive pericardial coronary arteries, normal right heart pressures and normal left ventricular filling pressure and normal wedge pressure. Severe LV dysfucntion, ejection fraction 20%. Patient will be discharge on Lasix 20 mg qday, Entresto , carvedilol mg twice dialy. Pateint counseled on daily weight checks and limit salt intake. Patient is stable and at baseline. Instructions: Please take all new medication as prescribed Please limit fluid intake to 2 liters per day and limit salt intake to 2 grams per day -Please follow up with your primary care provider within one week of discharge -If your symptoms worsen,please seek immediate medical attention and return to your nearest emergency room -If you do not have a primary care provider, you may follow up at the [facility] at [address] [place] [address] [address], [place] [address], #Acute hypoxic respiratory failure likely secondary to CHF exacerbation #New onset Congestive Heart Failure #CHF HFrEF 10 to 20% (08/08/2024) #Diastolic Dysfunction Grade III #Dialated Cardiomyopathy non-ischemic. #Severe LV Dysfunction, EF of 20% #Mild transaminitis, improving #Mild Contraction Alkalosis Case discussed with attending Dr. Nathan and senior resident, Dr. Chyna Clemente Internal Medicine PGY-2 Time Spent with Patient Time attestation: Total time spent providing and/or coordinating discharge services: at least 30 minutes of time and coordination. Time spent: Greater than 30 minutes Quality: AMI Clinical Trial Participant: No Contraindication for Aspirin: Treatment not indicated Contraindications to PCI Procedure: Treatment not indicated Contraindication for No Fibrinolytic Therapy: Treatment not indicated Quality: Stroke Reason for No Antithrombotic at DC: Treatment not indicated Reason for No Anticoagulant at DC: Treatment not indicated Contraindication Not Initiating IV-Tpa: Treatment not indicated Contraindication Antithromb by Day Two: Treatment not indicated Rehab Services Assessed: Physical therapy assessment Quality: VTE Contraindication No VTE Prophylaxis: Treatment not indicated Contraindication No Overlap Therapy: Procedure not indicated Is this test being ordered to rule out VTE?: No Deep Vein Thrombosis/Pulmonary Embolism Present on Admission: No Exam Vital Signs Temp Pulse Resp BP Pulse Ox O2 Del Method O2 Flow Rate 97.1 F 74 16 99/65 95 Room Air 2 08/10/24 12:00 08/10/24 12:00 08/10/24 12:00 08/10/24 12:00 08/10/24 12:00 08/10/24 12:08/10/24 08:00 Narrative Exam General Appearance: Alert & Oriented X3, well-nourished male who is lying in bed in no acute distress HEENT: Skull symmetrical and atraumatic. Conjunctivae pink and moist. Pupils equal, round, reactive to light and accommodation (PERRL). External ear without lesion or discharge. Straight, nares patient, mucosa pink, no discharge. No thyroid nodule appreciated. No cervical lymphadenopathy. Cardio: Normal Rate and Rhythm with S1 and S2 heart sounds. Possibe systolic murmur noted. No bruits on carotid auscultation. Improved pheripheral edema. Lungs: Symmetric with good expansion. Chest and back non-tender. Breath sounds vesicular with minimal crackles. Abdomen: Non-tender, Non-distended, Normal Reactive Bowel Sounds Neuro: Alert, cooperative, oriented to person, place, and time. Speech clear. CN grossly intact. Upper motor strength 5/5 and Lower motor strength 5/5. Sensation intact. Discharge Plan Plan Patient Disposition: HOME (Self Care) Patient condition on transfer: Stable Care Plan Goals: Instructions: Please take all new medication as prescribed Please limit fluid intake to 2 liters per day and limit salt intake to 2 grams per day -Please follow up with your primary care provider within one week of discharge -If your symptoms worsen,please seek immediate medical attention and return to your nearest emergency room -If you do not have a primary care provider, you may follow up at the [facility] at [facility] [address], [place] [address], Prescriptions/Referrals Prescriptions/Med Rec: New atorvastatin 20 mg Tablet 40 mg PO HS 30 Days Qty: 60 1RF spironolactone 25 mg Tablet 25 mg PO DAILY 30 Days Qty: 30 1RF carvedilol 3.125 mg Tablet 3.125 mg PO BIDWM 30 Days Qty: 90 0RF Entresto 24-26 mg Tablet 1 tab PO BID 30 Days Qty: 60 0RF furosemide [Lasix] 20 mg tablet 20 mg PO QDAY 30 Days Qty: 30 1RF Referrals: Cayla Pineda MD [Primary Care Provider] - Sri Dutta MD [Physician] - Patient/Caregiver Discharge Instructions Meds to Beds: No Discharge Activity: as per physical therapy Print Language: Ukrainian Stand Alone Forms: [employer] Info., Patient Portal Info Letter Discharge Order Discharge Orders: Discharge (Routine); Ordered 08/10/24 Ordered By: Raina Clemente Quality Discharge Quality Measures VTE prophylaxis
== END 2024-08-10 12:15 | disposition home or self-care (01) | DRG 286 ==
LOC: SERX 22:55 → SERHOLD 08-08 05:25 → S2SX 08-08 10:07 → S3NX 08-09 16:40
PROVIDERS: Internal Medicine Cardiovascular Disease; Nurse Practitioner Family; Physician Assistant; Admitting Provider Internal Medicine; Emergency Provider Emergency Medicine; PCP Family Medicine; Visit Provider Internal Medicine
PROC: 4A023N8 Measurement of Cardiac Sampling and Pressure, Bilateral, Percutaneous Approach (ICD-10-PCS; principal; 2024-08-09 08:30)
DX: I50.43 Acute on chronic combined systolic (congestive) and diastolic (congestive) heart failure (principal); J96.01 Acute respiratory failure with hypoxia; E87.3 Alkalosis; I42.0 Dilated cardiomyopathy; E11.9 Type 2 diabetes mellitus without complications; E78.00 Pure hypercholesterolemia, unspecified; I49.3 Ventricular premature depolarization; K76.0 Fatty (change of) liver, not elsewhere classified; M85.80 Other specified disorders of bone density and structure, unspecified site; Z79.899 Other long term (current) drug therapy
CPT/HCPCS: 36415; 71046; 76705; 80053; 80061; 80307; 81001; 83036; 83735; 83880; 84100; 84443; 84484; 85025; 85610; 85730; 87400; 87651; 87811; 93005; 93225; 93306; 96374; 99152; 99285; A4649; C1769; C1887; C1894; J0153; J0171; J0282; J0461; J1643; J1644; J1938; J2250; J2270; J2310; J2371; J3010; J3490; Q9967; A9270; J2305

== ENCOUNTER 2024-08-12 19:04 | Inpatient (IN) | payer MEDICARE, OTHER, SELFPAY ==
[2024-08-12 19:06] VITALS: BMI 30.8
--- NOTE | 2024-08-12 19:12 | EKG_ITS ---
[facility] Test Date: 2024-08-12 Pat Name: VALERIE CARLOS Department: Room: - Gender: Male [employer]ger: : 1955 Requested By: ED Temporary Provider Order Number: [id number] Reading MD: ED Temporary Provider Measurements Intervals [place] Rate: 86 P: 57 MO: 155 QRS: -57 QRSD: 103 T: 107 QT: 367 QTc: 441 Interpretive Statements SINUS RHYTHM WITH FREQUENT VENTRICULAR PREMATURE COMPLEXES LEFT AXIS DEVIATION [QRS AXIS < -30] PATTERN CONSISTENT WITH PULMONARY DISEASE ST DEVIATION AND MODERATE T-WAVE ABNORMALITY, CONSIDER LATERAL ISCHEMIA [-0.1+ mV T-WAVE IN I/aVL/V5/V6] Compared to ECG 08/07/2024 19:44:16 Possible ischemia now present T-wave abnormality still present /store/S0/[id number]/ecg/[id number].pdf
[2024-08-12 19:17] VITALS: BP 91/57; PULSE 70; RESP 20; TEMP 37.6; O2SAT 95
--- NOTE | 2024-08-12 19:28 | PD.EDEXREM ---
ED Extremity Problem RME/HPI General Chief complaint: General Adult/Misc Complain Stated complaint: lower ext edema Time Seen by Provider: 08/12/24 20:02 Arrival date/time: 08/12/24 19:04 RME / HPI RME / HPI Narrative: This section includes all my notes and documentations, including HPI, PE, and ED course. Faustino Plunkett MD HPI: 69yo male with a history of recently diagnosed CHF, HLD presents to the ED for complaints of worsening BLE swelling and shortness of breath. Patient was discharged after being admitted here 2 days ago for CHF. He also reports severe diffuse pain, including in the legs. Can't stand or ambulate due to the pain. No other complaints. ROS: All negative except as documented in HPI. Physical Exam: General: Alert and oriented. In obvious pain. Hypoxia noted. Eyes: Conjunctivae and lids clear. ENT: No nasal congestion. Neck: Supple. Heart: RRR. Lungs: In respiratory distress. Decreased air movement with bilateral rails. Abdomen: Soft with equivocal tenderness. Normal bowel sounds. No distension. No rebound or guarding. Back: No CVA tenderness. Skin: Warm and dry. Legs: Severe edema and tenderness bilaterally. Neuro: Alert and oriented X 3. I reviewed all diagnostic test results. My interpretation of the EKG is sinus rhythm with no acute ST?T changes. My interpretation of the chest x-ray is mild vascular congestion. My review of the BLE venous Doppler report is no DVT. My review of the BLE arterial Doppler report is negative. My review of the gallbladder US report is NAD. My review of the CT angio chest report is NAD. My review of the CT abdomen pelvis report is NAD. Blood tests remarkable for WBC 11.3, ESR 85, D-Dimer 2410, BNP 248. COVID/Influenza negative. UA unremarkable. At this point, diagnoses include acute respiratory failure and CHF. Treatment here included Oxygen, Lasix, Morphine, and 1 inch Nitropaste. Significant improvement not noted. I discussed the case with our hospitalist. About the presentation and exam and diagnostics and treatments here. And need of further care in the hospital. Will accept the patient. Faustino Plunkett MD Related Data Previous Rx's ?Medication ?Instructions ?Recorded atorvastatin 20 mg tablet 40 mg (2 x 20 mg) PO HS 30 days 08/10/24 #60 tabs carvedilol 3.125 mg tablet 3.125 mg PO BIDWM 30 days #90 tabs 08/10/24 furosemide 20 mg tablet (Lasix) 20 mg PO QDAY 30 days #30 tabs 08/10/24 sacubitril 24 mg-valsartan 26 mg 1 tab PO BID 30 days #60 tabs 08/10/24 tablet (Entresto) spironolactone 25 mg tablet 25 mg PO DAILY 30 days #30 tabs 08/10/24 Allergies Allergy/AdvReac Type Severity Reaction Status Date / Time No Known Allergies Allergy Verified 08/12/24 19:10 Review of Systems Review of Systems Systems Reviewed: All systems reviewed, normal except as documented Past Medical History Past Medical History CARDIAC: Negative Congestive Heart Failure (NEW SYMTPOMS) RESPIRATORY: Negative Chronic Obstructive Pulmonary Disease (COPD) GASTROINTESTINAL: Positive Obesity GENITOURINARY: Positive Kidney Stones; Negative Renal Disease ENDOCRINE: Negative Diabetes Mellitus Type 1 or Diabetes Mellitus Type 2 Social History SMOKING STATUS: Never smoker ED Exam Narrative Physical exam: As noted in HPI. Course Course Course Narrative: CXR is ordered for determining the etiology of shortness of breath. Quality Measures none Orders Category Date Time Status Bedside COVID-19 Antigen Test NOW Care 08/12/24 19:50 Active Bedside Influenza A&B Antigen Test NOW Care 08/12/24 19:50 Completed COVID-19 Screening Questionnaire NOW Care 08/13/24 02:[address] Screening NOW Care 08/12/24 19:57 Active Decision to Admit X1 Care 08/13/24 02:54 Completed EKG (ED ONLY) *Do not use* NOW Care 08/12/24 19:12 Completed [place] Routine Care 08/12/24 21:18 Ordered Saline [Insert IV] NOW Care 08/12/24 19:[address] abdomen pelvis w con Stat Exams 08/12/24 19:[address] angio chest Stat Exams 08/12/24 19:57 Completed EKG (ED Only) Stat Exams 08/12/24 19:12 Draft EKG (ED Only) Stat Exams 08/12/24 19:57 Ordered US arterial duplex LE BI Stat Exams 08/12/24 19:56 Completed US gall bladder Stat Exams 08/13/24 22:22 Taken US venous doppler LE BI Stat Exams 08/12/24 19:58 Completed XR chest 1V portable Stat Exams 08/12/24 19:57 Completed ABG [Arterial Blood Gas] Stat Lab 08/12/24 20:28 Completed Amylase Stat Lab 08/12/24 20:11 Completed BNP [B-Type Natriuretic Peptide] Stat Lab 08/12/24 20:11 Completed Bilirubin,Direct Stat Lab 08/12/24 20:11 Completed Blood Culture (Lab) Stat Lab 08/12/24 20:15 Received CBC Stat Lab 08/12/24 20:11 Completed CMP [Comprehensive Metabolic Panel] Stat Lab 08/12/24 20:11 Completed CRP [C-Reactive Protein] Stat Lab 08/12/24 20:11 Completed D-Dimer Stat Lab 08/12/24 20:11 Completed ESR [Sed Rate (ESR)] Stat Lab 08/12/24 20:11 Completed Free T4 (Free Thyroxine) Stat Lab 08/12/24 20:11 Completed Lactate (Lactic Acid) Stat Lab 08/12/24 20:11 Completed Lipase Stat Lab 08/12/24 20:11 Completed Magnesium Stat Lab 08/12/24 20:11 Completed PT [Prothrombin Time with INR] Stat Lab 08/12/24 20:11 Completed PTT [Partial Thromboplastin Time] Stat Lab 08/12/24 20:11 Completed Procalcitonin Stat Lab 08/12/24 20:11 Completed TSH [Thyroid Stimulating Hormone] Stat Lab 08/12/24 20:11 Completed Troponin I Stat Lab 08/12/24 20:11 Completed UA, C/S IF [Urinalysis, C/S if Indicated] Stat Lab 08/12/24 20:55 Completed Furosemide Inj [Lasix Inj] Med 08/12/24 19:50 Discontinued 40 mg IVP X1 ONE Morphine Inj Med 08/12/24 19:50 Discontinued 2 mg IVP X1 ONE Nitroglycerin Oint 2% [Nitro-paste Oint 2%] Med 08/12/24 19:50 Discontinued 1 inch TOP X1 ONE Vital Signs Vital signs: Vital Signs Temperature 99.7 F 08/12/24 19:17 Pulse Rate 70 08/12/24 19:17 Respiratory Rate 20 08/12/24 19:17 Blood Pressure 91/57 L 08/12/24 19:17 Pulse Oximetry (%) 95 08/12/24 19:17 Oxygen Delivery Method Room Air 08/12/24 19:17 Extremity Problem MDM Narrative MDM Narrative:: Scribe Attestation: 08/12/24 - Su Conner am scribing for and in the presence of Dr. Plunkett. 69yo male with a history of recently diagnosed CHF, HLD presents to the ED for complaints of worsening BLE swelling and shortness of breath. Patient was discharged after being admitted here 2 days ago for CHF. He also reports severe diffuse pain, including in the legs. Can't stand or ambulate due to the pain. No other complaints. Patient data External records reviewed:: [facility] previous records (Per chart review, patient was admitted here on 08/07/24 for CHF.) Clinical information provided by:: patient Social determinants that could affect healthcare access:: none Patient has the following chronic illnesses:: CHF, HLD How is presenting disease/condition affected by chronic disease/condition?: exacerbated by Evaluation data The following diagnostics were reviewed and interpreted by me:: lab results, radiology exam(s) and EKG tracing(s) Lab and/or radiology exams considered but not ordered:: none Interpretation Summary: I reviewed all diagnostic test results. My interpretation of the EKG is sinus rhythm with no acute ST?T changes. My interpretation of the chest x-ray is mild vascular congestion. My review of the BLE venous Doppler report is no DVT. My review of the BLE arterial Doppler report is negative. My review of the gallbladder US report is NAD. My review of the CT angio chest report is NAD. My review of the CT abdomen pelvis report is NAD. Blood tests remarkable for WBC 11.3, ESR 85, D-Dimer 2410, BNP 248. COVID/Influenza negative. UA unremarkable. Medications / Prescriptions Medications or Prescriptions considered but not ordered:: none Medication administrations:: Medication Administration History Acetaminophen (Acetaminophen 325 Mg Tablet) 650 mg PO Q6H PRN PRN Reason: Pain 1-3 and/or Fever >100.1 Stop: 09/12/24 02:56 Hydrocodone Bitart/Acetaminophen (Hydrocodone/Apap 10/325 Tab) 1 tab PO Q4H PRN PRN Reason: PAIN SCALE 4-6 (Moderate Stop: 08/18/24 02:56 Furosemide (Furosemide Inj 10 Mg/Ml 4ml Vial) 40 mg IVP QDAY VINAY Stop: 09/12/24 08:59 Heparin Sodium (Porcine) (Heparin Sod Inj 5000 Unit/Ml Vial) 5,000 unit SC Q12HR VINAY Stop: 08/27/24 08:59 Morphine Sulfate (Morphine Sulf Inj 10 Mg/Ml Vial) 2 mg IVP Q2H PRN PRN Reason: PAIN SCALE 7-10 (Severe Stop: 08/18/24 02:56 Ondansetron HCl (Ondansetron Inj 2 Mg/Ml Inj 2 Ml) 4 mg IVP Q6H PRN; Protocol PRN Reason: NAUSEA OR VOMITING Stop: 09/12/24 02:56 Sennosides (Senna Tablet) 1 tab PO QDAY PRN; Protocol PRN Reason: constipation Stop: 09/12/24 02:56 Discontinued Medications Furosemide (Furosemide Inj 10 Mg/Ml 4ml Vial) 40 mg IVP X1 ONE Stop: 08/12/24 19:51 Last Admin: 08/12/24 20:22 Dose: 40 mg Documented By: EF Morphine Sulfate (Morphine Sulf Inj 10 Mg/Ml Vial) 2 mg IVP X1 ONE Stop: 08/12/24 19:51 Last Admin: 08/12/24 20:21 Dose: 2 mg Documented By: EF Nitroglycerin (Nitroglycerin Oint 2% 1 Inch Packet) 1 inch TOP X1 ONE Stop: 08/12/24 19:51 Last Admin: 08/12/24 20:21 Dose: 1 inch Documented By: EF Oxygen, Lasix, Morphine, Nitropaste. Consultations Consultation(s) initiated? (list below): Yes Consultation #1 (Physician, Specialty, Details): I discussed the case with our hospitalist. About the presentation and exam and diagnostics and treatments here. And need of further care in the hospital. Will accept the patient. Diagnosis Extremity Problem Differential Diagnosis: superficial thrombophlebitis, lower extremity edema, deep vein thrombosis of lower extremity and other (OK, PE, CHF, COPD, UTI, pneumonia, sepsis) Most likely diagnosis given after review of the tests above:: Acute respiratory failure and CHF. Admission Indicated Admission indicated?: indicated Explain why admission is indicated or not indicated:: Acute respiratory failure and CHF. Admission Request Was there a request for admission?: Yes Admission Attestation Admission request attestation: Discussed case with Hospitalist service regarding admission. Discussed patients ED course, exam findings, labs, and radiology results. The Hospitalist [agrees] to accept the patient for admission. Disposition Plan Disposition Plan: Admit Discharge Plan Plan Patient Disposition: Admit Acute Care w/in Hospital Problem List Clinical Impression: Acute respiratory failure with hypoxia, CHF (congestive heart failure)
[2024-08-12 19:52] VITALS: BP 130/86; PULSE 69; RESP 15; O2SAT 95
--- NOTE | 2024-08-12 19:56 | XR_ITS ---
Examination: Arterial duplex lower extremity study. Date and time of exam: August 22, 2024 2126 hours INDICATIONS: Bilateral leg pain 3 days Findings: Duplex sonographic imaging of the lower extremity arteries using B-mode/Soriano scale imaging and Doppler spectral analysis and color flow. Ankle brachial indices have been recorded. Right common femoral artery demonstrates triphasic flow. Right superficial femoral artery demonstrates triphasic flow. Right popliteal artery demonstrates triphasic flow. Right posterior tibial artery demonstrated triphasic flow. Right ankle/brachial index is 1.2. Left common femoral artery demonstrates triphasic flow. Left superficial femoral artery demonstrates triphasic flow. Left popliteal artery demonstrates triphasic flow. Left posterior tibial artery demonstrated triphasic flow. Left ankle/brachial index is 1.1. Impression: Negative study
--- NOTE | 2024-08-12 19:57 | XR_ITS ---
Examination: AP chest single view TECHNIQUE: AP portable semiupright chest single view Date and time: August 12, 20242016 hours Comparison August 07, 2024 INDICATIONS: Shortness of breath today. FINDINGS: Normal heart size Mild vascular congestion. No lobar pneumonia or ce pulmonary edema IMPRESSION: Mild vascular congestion
--- NOTE | 2024-08-12 19:57 | XR_ITS ---
Examination: CTA chest with intravenous contrast 2-D reconstructions 3-D reconstructions, vascular Date and time of exam: August 12, 2024 10:46 PM INDICATIONS: Shortness of breath chest pain beginning today CTDI: vol (mGy) 15.5 DLP: (mGycm) 605 Technique: Multiple axial sections of the thorax have been obtained. 3 mm slice thickness, from below the hemidiaphragms to above the apices of the lungs. Mediastinal and lung density settings have been obtained. 2-D sagittal and coronal reconstructions. 3-D angiographic renderings, 3-D volume renderings, 3D post processing, vascular maximum intensity projections obtained. Contrast administered is 100 cc Isovue 370. Low dose protocols were performed. One or more of the following dose reduction techniques were used; automated exposure control, adjustment of the mA and/or KV according to patient size, use of iterative reconstruction technique. Findings: No thoracic aortic aneurysm dilatation No pulmonary artery filling defects No paratracheal tracheobronchial or bronchopulmonary adenopathy No pneumonia or pulmonary edema or pleural disease Moderate thoracic spondylosis IMPRESSION: Negative for pulmonary artery emboli
--- NOTE | 2024-08-12 19:57 | XR_ITS ---
Examination: CT abdomen with intravenous contrast CT pelvis with intravenous contrast 2-D coronal reconstructions 2-D sagittal reconstructions Date and time of exam:August 12, 2024 1046 hours INDICATIONS: Abdominal pain today. CTDI: vol (mGy) 22 DLP: (mGycm) 1408 Technique: Multiple axial sections of the abdomen and pelvis have been obtained. 64 slice high-resolution scanner used. 3 mm axial sections have been obtained, post intravenous injection 100 cc Isovue-370 2-D sagittal, coronal reconstructions obtained. Low dose protocols were performed. One or more of the following dose reduction techniques were used; automated exposure control, adjustment of the mA and/or KV according to patient size, use of iterative reconstruction technique. Findings: No focal liver or splenic lesions No gallstones No pancreatic or adrenal mass Perinephric stranding Aorta normal size No pericecal inflammatory change Small fat-containing umbilical hernia Normal appendix No diverticulitis Urinary bladder is contracted around a [place] catheter Prostatomegaly transverse dimension 6 cm Moderate lumbar spondylosis IMPRESSION: Normal appendix Small fat-containing umbilical hernia Significant prostatomegaly
--- NOTE | 2024-08-12 19:58 | XR_ITS ---
Examination: Venous duplex lower extremity sonogram, bilateral. Date and time of exam: August 12, 2024 2017 hours INDICATIONS: Bilateral leg swelling and pain this week Technique: Multiple sonographic images of the deep venous system have been obtained. B-mode/2-D grayscale imaging of vascular structures and Doppler spectral analysis (waveforms) and color performed Both legs are examined. Findings: Deep venous systems do not demonstrate abnormal echogenicity. All visualized deep veins exhibit compressibility. All visualized deep veins exhibit augmentation. Impression: Negative for deep vein thrombosis
[2024-08-12 20:19] LABS: Lactate (Lactic Acid) 0.8 mMol/L (0.4-2.0)
[2024-08-12 20:21] VITALS: BP 135/68; PULSE 61
[2024-08-12] MEDS: NITROGLYCERIN OINT 2% 1 INCH PACKET TOP (20:21)
[2024-08-12] MEDS: MORPHINE SULF INJ 10 MG/ML VIAL 2 MG IVP (20:21)
[2024-08-12 20:22] VITALS: BP 135/68; PULSE 63
[2024-08-12 20:22] LABS: Basophils # (Auto) 0.0 Thou/mm3 (0.0-0.2); Basophils % (Auto) 0 % (0-2.5); Eosinophils # (Auto) 0.0 Thou/mm3 (0.0-0.5); Eosinophils % (Auto) 0 % (0-10); Hematocrit 44.7 % (41.0-53.0); Hemoglobin 14.5 g/dL (13.5-16.0); Immature Granulocytes Auto 0.05 Thou/mm3 (0.00-0.00); Lymphocytes # (Auto) 1.1 Thou/mm3 (1.0-4.8); Lymphocytes % (Auto) 10 % (10-50); Mean Corpuscular HGB Conc 32.4 g/dl (31.0-37.0); Mean Corpuscular Hemoglobin 27.4 pg (25.0-35.0); Mean Corpuscular Volume 84 fL (80-100); Monocytes # (Auto) 1.6 Thou/mm3 (0.0-0.8); Monocytes % (Auto) 14 % (0-12); Neutrophils # (Auto) 8.5 Thou/mm3 (1.8-7.7); Neutrophils % (Auto) 75 % (37-80); Nucleated Red Blood Cell # 0.00 Thou/mm3 (0.00-0.00); Nucleated Red Blood Cell % 0 /100 WBC (0); Platelet Count 172 Thou/mm3 (140-440); RDW Standard Deviation 44.6 fL (35.1-43.9); Red Blood Count 5.30 Miln/mm3 (4.50-5.90); White Blood Count 11.3 Thou/mm3 (3.8-10.6)
[2024-08-12] MEDS: FUROSEMIDE INJ 10 MG/ML 4ML VIAL 40 MG IVP (20:22)
[2024-08-12 20:33] LABS: Sed Rate (ESR) 85 mm/hr (0-20)
[2024-08-12 20:35] LABS: INR 1.2 (0.9-1.3); Partial Thromboplastin Time 34.7 Seconds (22.0-36.0); Prothrombin Time 13.0 Seconds (9.0-12.2)
[2024-08-12 20:35] LABS: Base Excess 3 (-3-3); HCO3 27 mEq/L (20-26); Inspired Oxygen, FIO2 21 %; O2 Saturation 95 % (91-98); PCO2 38 mmHg (32.0-48.0); PO2 66 mmHg (83-108); pH, Arterial 7.46 (7.35-7.45)
[2024-08-12 20:36] LABS: Allen Test Performed/OK; Puncture Site Right Radial
[2024-08-12 20:37] LABS: B-Type Natriuretic Peptide 248 pg/mL (0-100)
[2024-08-12 20:51] LABS: D-Dimer 2410 ng/mL (<600)
[2024-08-12 21:11] VITALS: BP 123/67; BP 139/83; BP 152/67; BP 99/57; PULSE 64
[2024-08-12 21:16] LABS: Collection Type, Urine Clean Catch
[2024-08-12 21:24] LABS: Amorphous Crystals,Urine Present (Absent); Bacteria,Urine Rare; Bilirubin,Urine Negative (Negative); Blood,Urine Negative (Negative); Clarity,Urine Clear (Clear/Hazy); Color,Urine Yellow (Lt Yel-Yel); Culture Indicated,Urine Not Indicated; Glucose, Urine Negative (Negative); Ketones,Urine Negative (Negative); Leukocyte Esterase,Urine Negative (Negative); Nitrite,Urine Negative (Negative); PH,Urine 6.5 (5.0-7.0); Protein,Urine Negative (Neg - Trace); RBC,Urine 3 /hpf (0-3); Specific Gravity,Urine 1.015 (1.001-1.035); Squamous Epithelial Cell,Urine 1 /hpf (0-5); Urobilinogen,Urine 2.0 mg/dL (0.0-1.0); WBC,Urine 1 /hpf (0-5)
[2024-08-12 22:01] LABS: Potassium 4.5 mMol/L (3.4-5.1); Sodium 139 mMol/L (136-145)
[2024-08-12 22:02] LABS: Alanine Aminotransferase 24 U/L (10-49); Albumin, Serum 4.7 gm/dL (3.4-4.8); Albumin/Globulin Ratio 1.6 (1.2-2.2); Alkaline Phosphatase 99 U/L (46-116); Anion Gap 10 (7-16); Aspartate Amino Transferase 18 U/L (0-34); BUN/Creatinine Ratio 23 Ratio (12-20); Bilirubin,Direct 0.9 mg/dL (0.0-0.3); Bilirubin,Total 2.0 mg/dL (0.3-1.2); Blood Urea Nitrogen 28 mg/dL (9-23); Calcium 10.0 mg/dL (8.3-10.6); Calcium (Corrected) 10.0 mg/dL (8.5-10.1); Carbon Dioxide 29.3 mMol/L (20.0-31.0); Chloride 100 mMol/L (98-107); Creatinine (Component) 1.2 mg/dL (0.6-1.3); Estimated Creatinine Clearance 64.2 mL/min (>60); Free T4 (Free Thyroxine) 1.08 ng/dL (0.89-1.76); Globulin 3.0 gm/dL (2.3-3.5); Glucose 111 mg/dL (74-106); Lipase 39 U/L (12-53); Magnesium 2.4 mg/dL (1.6-2.6); Osmolality,Calculated 284 (275-295); Procalcitonin 0.52 ng/ml (0.0-0.49); Thyroid Stimulating Hormone 2.12 uIU/mL (0.55-4.78); Total Protein 7.7 gm/dL (5.7-8.2); Troponin I < 0.020 ng/mL (0.0-0.045); eGFR > 60 See Note
[2024-08-12 22:32] LABS: Amylase 77 U/L (30-118)
[2024-08-12 22:45] LABS: C-Reactive Protein > 10.0 mg/dL (0.0-0.9)
[2024-08-13] VITALS (12 sets, daily range): BP systolic 90–125; BP diastolic 59–77; PULSE 62–100; RESP 17–22; TEMP 36.1–37.1; O2SAT 94–97
--- NOTE | 2024-08-13 03:01 | PD.RESHP ---
Documentation for date of: 08/13/24 HPI History of Present Illness Chief complaint: Shortness of breath and generalized pain History of present illness: 69-year-old male with past medical history of HFrEF with EF of 10 to 15% diastolic dysfunction grade III, and severe LV Dysfunction and generalized pain presenting to the ED with shortness of breath and generalized bony pain. Patient was recently discharged on 08/10 for acute CHF exacerbation and was told to follow-up with primary care physician along with starting new medications including spironolactone, carvedilol, Entresto and diuretics. Patient states that he has been able to take his new medications; however, he came back to the ED as he was having generalized body pain. Patient's sister is bedside and corroborated his story; moreover, patient is agreeable to go to a SNF if necessary regarding his generalized weakness and pain. Medical history: As stated above Surgical history: Denies Allergies: NKDA Medications: Pending official med rec Family history: Noncontributory Social history: Patient lives with his , denies any alcohol, tobacco or illicit drug use ROS: All 12 systems as the patient denies unless otherwise stated in HPI In the ED, patient presented hypotensive 91/57, heart rate 70, respiratory 20, afebrile satting 95 on 2 L. Pertinent lab findings included WBC of 11.3, D-dimer elevated at 2410, ABG showed pH of 7.46, [id number], PO2 of 66 and a bicarb of 27, lactic acid 0.8, T. bili of 2.0, D bili of 0.9, CRP greater than 10, BNP of 248, troponin less than 0.020, Pro-Thierno 0.52. Urinalysis shows no signs of urinary tract infection. EKG showed sinus rhythm with frequent PVCs, left axis deviation. Duplex ultrasound showed no suspicious findings, CT abdomen pelvis showed a fat-containing umbilical hernia, significant prostatomegaly, chest CTA was negative for PE, chest x-ray showed mild vascular congestion, venous Doppler study was also negative and gallbladder ultrasound is pending radiology read Patient will be admitted for CHF exacerbation along with physical therapy consultation for SNF placement. Exam Vital Signs Temp Pulse Resp BP Pulse Ox O2 Del Method O2 Flow Rate 98.2 F 100 17 90/61 95 Room Air 2 08/13/24 02:09 08/13/24 02:09 08/13/24 02:09 08/13/24 02:09 08/13/24 02:08/13/24 02:09 08/13/24 00:36 Narrative Exam Physical Exam: GENERAL: Awake, answering questions appropriately in Citizen Of [place], appears stated age, obese HEENT: NC/AT. Moist mucosa. PERRLA/EOMI. CARDIO: Heart RRR, no obvious murmurs, no JVD. PULM: No coughing or visible SOB. Lungs CTA B/L. On 2 L nasal cannula saturating 95 GI: Abdomen soft, NT/ND, +BS. : Durham catheter inserted draining clear yellow urine SKIN/MSK/EXT: Nonpitting edema up to bilateral feet. No wounds/discoloration/rashes/amputations noted. +Pedal pulses present B/L. NEURO: Oriented x3, Moves extremities x4, no focal neurologic deficits. Results: Labs 08/13/24 03:45 08/13/24 03:45 Labs: Short CBC 08/12/24 Range/Units 20:11 WBC 11.3 H (3.8-10.6) Thou/mm3 Hgb 14.5 (13.5-16.0) g/dL Hct 44.7 (41.0-53.0) % Plt Count 172 (140-440) Thou/mm3 BMP 08/12/24 20:11 Sodium 139 Potassium 4.5 D Chloride 100 Carbon Dioxide 29.3 BUN 28 H Creatinine 1.2 Glucose 111 H Calcium 10.0 Cardiac Enzymes 08/12/24 Range/Units 20:11 Troponin I < 0.020 (0.0-0.045) ng/mL Liver Function 08/12/24 Range/Units 20:11 Total Bilirubin 2.0 H D (0.3-1.2) mg/dL Direct Bilirubin 0.9 H (0.0-0.3) mg/dL AST 18 (0-34) U/L ALT 24 (10-49) U/L Alkaline Phosphatase 99 (46-116) U/L Albumin 4.7 (3.4-4.8) gm/dL Urine 08/12/24 Range/Units 20:55 Urine Color Yellow (Lt Yel-Yel) Urine Clarity Clear (Clear/Hazy) Urine pH 6.5 (5.0-7.0) Ur Specific [place] 1.015 (1.001-1.035) Urine Protein Negative (Neg - Trace) Urine Glucose (UA) Negative (Negative) ABG Interpretation ABG results: 08/12/24 20:28 ABG pH 7.46 H ABG pCO2 38 ABG pO2 66 L ABG HCO3 27 H ABG O2 Saturation 95 ABG Base Excess 3 Quality Measures Quality Measures none Advance care planning discussed with:: patient Medications Home Medications and Allergies Allergies Allergy/AdvReac Type Severity Reaction Status Date / Time No Known Allergies Allergy Verified 08/12/24 19:10 Visit Medications Discontinued Medications Furosemide (Furosemide Inj 10 Mg/Ml 4ml Vial) 40 mg IVP X1 ONE Stop: 08/12/24 19:51 Last Admin: 08/12/24 20:22 Dose: 40 mg Morphine Sulfate (Morphine Sulf Inj 10 Mg/Ml Vial) 2 mg IVP X1 ONE Stop: 08/12/24 19:51 Last Admin: 08/12/24 20:21 Dose: 2 mg Nitroglycerin (Nitroglycerin Oint 2% 1 Inch Packet) 1 inch TOP X1 ONE Stop: 08/12/24 19:51 Last Admin: 08/12/24 20:21 Dose: 1 inch Assessment & Plan Plan 69-year-old male with past medical history of HFrEF with EF of 10 to 15% diastolic dysfunction grade III, and severe LV Dysfunction and generalized pain presenting to the ED with shortness of breath and generalized bony pain will be admitted for CHF exacerbation along with physical therapy consultation for SNF placement. #Acute hypoxic respiratory failure secondary to #HFrEF with EF of 10 to 15% #Diastolic dysfunction grade III #Severe LV Dysfunction Differentials initially included; PE vs. CHF exacerbation vs. possible PNA As per HPI, patient's been having new onset shortness of breath and dyspnea upon exertion Denies having any concerning medical history such as hypertension, diabetes, denies any family history of cardiac disease On examination, patient is requiring 2 L of nasal cannula in order to saturate between 90 to 95% Desaturates to 85 to 88% without oxygen ABG showed pH of 7.46, [id number], PO2 of 66 and a bicarb of 27, lactic acid 0.8 EKG showed sinus rhythm with frequent PVCs, left axis deviation. Duplex ultrasound showed no suspicious findings, CT abdomen pelvis showed a fat-containing umbilical hernia, significant prostatomegaly, Chest CTA was negative for PE, chest x-ray showed mild vascular congestion, venous Doppler study was also negative Given IV Lasix 40 mg x 1 in the ED Plan: IV Lasix 40 mg daily Restart GDMT when appropriate Strict I's and O's Daily weight #Generalized Pain Likely secondary to acutely ill status in addition to chronic medical condition, HFrEF Patient reporting generalized bodyaches Plan: Multimodal analgesia PT evaluation for SNF placement #Elevated LFTs Likely secondary to obesity, MASLD versus less likely to be from hepatitis, alcohol use disorder not present, congestion from CHF Preliminary radiological read states No sonographic evidence of cholelithiasis, acute cholecystitis or biliary obstruction. Heterogeneous liver echotexture and mild hepatomegaly. Hepatic parenchymal disease cannot be excluded Patient also has elevated ESR and CRP, possibly related Plan: Follow-up with morning labs Outpatient follow-up to workup secondary causes of parenchymal disease, primary biliary cirrhosis versus primary sclerosing cholangitis? #Prostatomegaly As noted in CT findings Patient has Durham in Plan: Outpatient urology follow-up Health Maintenance: Lines: PIV, Durham Diet: Cardiac Bowel: Senna GI prophylaxis:not needed DVT prophylaxis: Heparin subcu Dispo: IV diuretics for new onset CHF, PT eval for SNF placement Code: Full Patient seen and examined with attending Dr. Nely Nunez, DO PGY-2 Internal Medicine - GME Attending Provider Attestation/Addendum I have examined the patient, reviewed labs and imaging findings, discussed the case with the resident(s), and reviewed entered orders. I agree with the plan of care as outlined in this note, with these additional summaries/recommendations: After examination of the patient and review of the clinical data, I feel that this patient needs admission to the hospital for further treatment and evaluation. Patient is a 69-year-old male with a medical history of hyperlipidemia, neuropathy, and recent diagnosis of CHF (EF 10 to 15%) presents to [facility] emergency department on 08/13/2024 with chief complaints of shortness of breath and bilateral lower extremity swelling. Patient and daughter seen at bedside. He endorses generalized weakness, shortness of breath, weight gain, and increased bilateral lower extremity swelling. Patient will be admitted for acute on chronic CHF exacerbation. Presented with lower extremity edema, shortness of breath, orthopnea, and weight gain. BNP 248, chest x-ray showed mild vascular congestion, and weight 94.8 kg. Currently has NYHA class IV and ACC/AHA stage D. Patient reports compliance with home medicines and unclear trigger for decompensation although likely related to extremely low EF. Echocardiogram on 08/08/2024 showed moderate to severe left ventricular dilation with severely reduced EF of 10 to 15%, severe global hypokinesis, and grade 3 diastolic dysfunction. Admit patient to telemetry, strict I's/O's and daily weights. Continue pulse oximeter, titrate O2 to around 90%. For preload reduction we will continue diuresis with goal net negative at least 1.5 L for hospital stay. Fluid restrict 1.5 L/day. For afterload reduction we will resume home Entresto as tolerated. For neurohormonal blockade we will continue beta-josé miguel as tolerated. Hold spironolactone for now given soft blood pressure. Patient will need 90 days of optimal medical therapy before ICD placement. Patient also endorses severe generalized weakness and we will obtain physical therapy consultation. Hyperbilirubinemia present with bilirubin 2.0 although no abdominal complaints at this time. AST/ALT/ALP within normal limits and elevated bilirubin possibly secondary to congestive hepatopathy. Avoid hepatotoxic agents and repeat level in AM. Liver ultrasound on 08/08/2024 showed normal gallbladder. Okay to continue home gabapentin for neuropathy. Pro-Thierno minimally elevated although no evidence of infection at this time and continue to monitor. Patient updated on the plan and in agreement. All questions answered to satisfaction. Please see residents note for additional details and management. Dr. Nely MD
--- NOTE | 2024-08-13 03:22 | PRELIM_ITS ---
Gallbladder ultrasound. August 13, 2024 0102 hours Clinical history: RUQ tenderness Comparison: No prior study is available for comparison. Findings: The visualised liver is heterogeneous in echotexture and mildly enlarged. No focal mass or intrahepatic biliary ductal dilatation is demonstrated. No gallbladder calculus, wall thickening, or pericholecystic fluid is seen. The common bile duct is normal in calibre at 0.3 cm. The pancreas is partially visualised, and unremarkable to the extent visualized. No free fluid is demonstrated on the submitted images. Impression: No sonographic evidence of cholelithiasis, acute cholecystitis or biliary obstruction. Heterogeneous liver echotexture and mild hepatomegaly. Hepatic parenchymal disease cannot be excluded. Recommend clinical correlation. Report Electronically Signed By: Radhames Kwan 08/13/2024 3:21:52 AM [EST]
[2024-08-13 04:03] LABS: Basophils # (Auto) 0.0 Thou/mm3 (0.0-0.2); Basophils % (Auto) 0 % (0-2.5); Eosinophils # (Auto) 0.0 Thou/mm3 (0.0-0.5); Eosinophils % (Auto) 0 % (0-10); Hematocrit 44.8 % (41.0-53.0); Hemoglobin 14.5 g/dL (13.5-16.0); Immature Granulocytes Auto 0.03 Thou/mm3 (0.00-0.00); Lymphocytes # (Auto) 1.2 Thou/mm3 (1.0-4.8); Lymphocytes % (Auto) 12 % (10-50); Mean Corpuscular HGB Conc 32.4 g/dl (31.0-37.0); Mean Corpuscular Hemoglobin 27.9 pg (25.0-35.0); Mean Corpuscular Volume 86 fL (80-100); Monocytes # (Auto) 1.1 Thou/mm3 (0.0-0.8); Monocytes % (Auto) 12 % (0-12); Neutrophils # (Auto) 7.3 Thou/mm3 (1.8-7.7); Neutrophils % (Auto) 75 % (37-80); Nucleated Red Blood Cell # 0.00 Thou/mm3 (0.00-0.00); Nucleated Red Blood Cell % 0 /100 WBC (0); Platelet Count 173 Thou/mm3 (140-440); RDW Standard Deviation 46.1 fL (35.1-43.9); Red Blood Count 5.19 Miln/mm3 (4.50-5.90); White Blood Count 9.7 Thou/mm3 (3.8-10.6)
[2024-08-13 04:17] LABS: Alanine Aminotransferase 24 U/L (10-49); Albumin, Serum 4.4 gm/dL (3.4-4.8); Albumin/Globulin Ratio 1.5 (1.2-2.2); Alkaline Phosphatase 93 U/L (46-116); Anion Gap 12 (7-16); Aspartate Amino Transferase 16 U/L (0-34); BUN/Creatinine Ratio 21 Ratio (12-20); Bilirubin,Total 1.9 mg/dL (0.3-1.2); Blood Urea Nitrogen 27 mg/dL (9-23); Calcium 9.4 mg/dL (8.3-10.6); Calcium (Corrected) 9.4 mg/dL (8.5-10.1); Carbon Dioxide 27.8 mMol/L (20.0-31.0); Chloride 100 mMol/L (98-107); Creatinine (Component) 1.3 mg/dL (0.6-1.3); Estimated Creatinine Clearance 59.2 mL/min (>60); Globulin 2.9 gm/dL (2.3-3.5); Glucose 112 mg/dL (74-106); Magnesium 2.4 mg/dL (1.6-2.6); Osmolality,Calculated 285 (275-295); Phosphorous 4.2 mg/dL (2.4-5.1); Potassium 4.2 mMol/L (3.4-5.1); Sodium 140 mMol/L (136-145); Total Protein 7.3 gm/dL (5.7-8.2); eGFR 59 See Note
[2024-08-13] MEDS: HEPARIN SOD INJ 5000 UNIT/ML VIAL SC ×2 (09:26→20:29)
[2024-08-13] MEDS: FUROSEMIDE INJ 10 MG/ML 4ML VIAL 40 MG IVP (09:26)
[2024-08-13 09:35] LABS: Creatine Kinase 32 U/L (34-171); Uric Acid 9.4 mg/dL (3.7-9.2)
--- NOTE | 2024-08-13 14:25 | PD.RESPRO ---
Documentation for date of: 08/13/24 Subjective Subjective Interval history: Patient examined overnight. Increased vatigue and worsening shortness of breath with ambultion. Patient also complaining of generalized pain, thought all body area that is made worse with minimal exertion. Patient advised to continue GDMT, slowly re-introduce. Mild WADE. Pending EDIL. Pending PT, likely will benefit form oxygen. Patient may requires possible lumbar mri. Patient was seen at bedside today and interviewed in conjunction with his daughters. Patient endorsed BLE pain and weakness. Mild trace edema was present. Patient denied chest pain and SOB. Per daughters, the patient could not ambulate independently and they stated that they had not seen their father like this before. Patient started GDMT for HfREF diastolic dysfunction grade III on 08/11 after most recent hospital discharge. Exam Vital Signs Temp Pulse Resp BP Pulse Ox O2 Del Method O2 Flow Rate 97.0 F 62 19 108/72 96 Nasal Cannula 2 08/13/24 12:08/13/24 12:08/13/24 12:08/13/24 12:08/13/24 12:08/13/24 12:08/13/24 12:00 Narrative Exam General Appearance: Alert & Oriented X3, well-nourished male who is lying in bed in mild distress. HEENT: Skull symmetrical and atraumatic. Conjunctivae pink and moist. Pupils equal, round, reactive to light and accommodation (PERRL). External ear without lesion or discharge. Straight, nares patient, mucosa pink, no discharge. No thyroid nodule appreciated. No cervical lymphadenopathy. Cardio: Normal Rate and Rhythm with S1 and S2 heart sounds. No murmurs or extra heart sounds auscultated. No bruits on carotid auscultation. No peripheral edema or cyanosis. Lungs: Symmetric with good expansion. Chest and back non-tender. Breath sounds vesicular without crackles, wheezing or rhonchi Abdomen: Non-tender, Non-distended, Normal Reactive Bowel Sounds Neuro: Alert, cooperative, oriented to person, place, and time. Speech clear. CN grossly intact. Upper motor strength 4/5 and Lower motor strength 4/5. Sensation intact. Objective Labs 08/13/24 03:45 08/13/24 03:45 Labs: Laboratory Results - last 24 hr 08/12/24 08/12/24 08/12/24 20:11 20:28 20:55 WBC 11.3 H RBC 5.30 Hgb 14.5 Hct 44.7 MCV 84 MCH 27.4 MCHC 32.4 RDW Std Deviation 44.6 H Plt Count 172 Neut % (Auto) 75 Lymph % (Auto) 10 [place] % (Auto) 14 H Eos % (Auto) 0 Baso % (Auto) 0 Neut # (Auto) 8.5 H Lymph # (Auto) 1.1 [place] # (Auto) 1.6 H Eos # (Auto) 0.0 Baso # (Auto) 0.0 Immature Gran # (Auto) 0.05 H Absolute Nucleated RBC 0.00 Immature Gran % 0 Nucleated RBC % 0 ESR 85 H PT 13.0 H INR 1.2 APTT 34.7 D-Dimer 2410 H Puncture Site Right Radial ABG pH 7.46 H ABG pCO2 38 ABG pO2 66 L ABG HCO3 27 H ABG O2 Saturation 95 ABG Base Excess 3 FiO2 21 Sodium 139 Potassium 4.5 D Chloride 100 Carbon Dioxide 29.3 Anion Gap 10 BUN 28 H Creatinine 1.2 Estim Creat Clear Calc 64.2 eGFR > 60 BUN/Creatinine Ratio 23 H Glucose 111 H Calculated Osmolality 284 Lactic Acid 0.8 Uric Acid Calcium 10.0 Corrected Calcium 10.0 Phosphorus Magnesium 2.4 Total Bilirubin 2.0 H D Direct Bilirubin 0.9 H AST 18 ALT 24 Alkaline Phosphatase 99 Total Creatine Kinase Troponin I < 0.020 C-Reactive Prot, Quant > 10.0 H B-Natriuretic Peptide 248 H Total Protein 7.7 Albumin 4.7 Globulin 3.0 Albumin/Globulin Ratio 1.6 Amylase 77 Lipase 39 Procalcitonin 0.52 H TSH 2.12 Free T4 1.08 Ur Collection Type Clean Catch Urine Color Yellow Urine Clarity Clear Urine pH 6.5 Ur Specific [place] 1.015 Urine Protein Negative Urine Glucose (UA) Negative Urine Ketones Negative Urine Blood Negative Urine Nitrite Negative Urine Bilirubin Negative Urine Urobilinogen (Auto) 2.0 Ur Leukocyte Esterase Negative Urine RBC 3 Urine WBC 1 Ur Squamous Epith Cells 1 Amorphous Crystals Present A Urine Bacteria Rare Ur Culture Indicated? Not Indicated 08/13/24 03:45 WBC 9.7 RBC 5.19 Hgb 14.5 Hct 44.8 MCV 86 MCH 27.9 MCHC 32.4 RDW Std Deviation 46.1 H Plt Count 173 Neut % (Auto) 75 Lymph % (Auto) 12 [place] % (Auto) 12 Eos % (Auto) 0 Baso % (Auto) 0 Neut # (Auto) 7.3 Lymph # (Auto) 1.2 [place] # (Auto) 1.1 H Eos # (Auto) 0.0 Baso # (Auto) 0.0 Immature Gran # (Auto) 0.03 H Absolute Nucleated RBC 0.00 Immature Gran % 0 Nucleated RBC % 0 ESR PT INR APTT D-Dimer Puncture Site ABG pH ABG pCO2 ABG pO2 ABG HCO3 ABG O2 Saturation ABG Base Excess FiO2 Sodium 140 Potassium 4.2 Chloride 100 Carbon Dioxide 27.8 Anion Gap 12 BUN 27 H Creatinine 1.3 Estim Creat Clear Calc 59.2 L eGFR 59 L BUN/Creatinine Ratio 21 H Glucose 112 H Calculated Osmolality 285 Lactic Acid Uric Acid 9.4 H Calcium 9.4 Corrected Calcium 9.4 Phosphorus 4.2 Magnesium 2.4 Total Bilirubin 1.9 H Direct Bilirubin AST 16 ALT 24 Alkaline Phosphatase 93 Total Creatine Kinase 32 L Troponin I C-Reactive Prot, Quant B-Natriuretic Peptide Total Protein 7.3 Albumin 4.4 Globulin 2.9 Albumin/Globulin Ratio 1.5 Amylase Lipase Procalcitonin TSH Free T4 Ur Collection Type Urine Color Urine Clarity Urine pH Ur Specific [place] Urine Protein Urine Glucose (UA) Urine Ketones Urine Blood Urine Nitrite Urine Bilirubin Urine Urobilinogen (Auto) Ur Leukocyte Esterase Urine RBC Urine WBC Ur Squamous Epith Cells Amorphous Crystals Urine Bacteria Ur Culture Indicated? ABG Interpretation ABG results: 08/12/24 20:28 ABG pH 7.46 H ABG pCO2 38 ABG pO2 66 L ABG HCO3 27 H ABG O2 Saturation 95 ABG Base Excess 3 Quality Measures Quality Measures none Advance care planning discussed with:: patient Assessment & Plan Assessment Current Active Medications: Generic Name Dose Route Start Last Admin Trade Name Freq PRN Reason Stop Dose Admin Acetaminophen 650 mg 08/13/24 02:57 Acetaminophen 325 Mg Tablet PO 09/12/24 02:56 Q6H PRN Pain 1-3 and/or Fever >100.1 Hydrocodone Bitart/Acetaminophen 1 tab 08/13/24 02:57 08/13/24 08:07 Hydrocodone/Apap 10/325 Tab PO 08/18/24 02:56 1 tab Q4H PRN Administration PAIN SCALE 4-6 (Moderate Furosemide 20 mg 08/14/24 09:00 Furosemide 20 Mg Tablet PO 09/13/24 08:59 QAM VINAY Heparin Sodium (Porcine) 5,000 unit 08/13/24 09:00 08/13/24 09:26 Heparin Sod Inj 5000 Unit/Ml Vial SC 08/27/24 08:59 5,000 unit Q12HR VINAY Administration Morphine Sulfate 2 mg 08/13/24 02:57 Morphine Sulf Inj 10 Mg/Ml Vial IVP 08/18/24 02:56 Q2H PRN PAIN SCALE 7-10 (Severe Ondansetron HCl 4 mg 08/13/24 02:57 Ondansetron Inj 2 Mg/Ml Inj 2 Ml IVP 09/12/24 02:56 Q6H PRN NAUSEA OR VOMITING Protocol Sennosides 1 tab 08/13/24 02:57 Senna Tablet PO 09/12/24 02:56 QDAY PRN constipation Protocol Plan Plan Patient is a 69 year old male with a PMHx of CHF 10 to 15% (08/08/2024) who originally presented to the ED 08/12 for generalized body pain and SOB who was an overnight admit for generalized body pain. #Generalized Pain Likely secondary to acutely ill status in addition to chronic medical condition, HFrEF Patient reporting generalized body aches and pain Pertinent labs: CK 32 Uric Acid 9.4 ESR 85 CRP >10 Plan: -consider starting colchicine AM -Multimodal analgesia -Physical therapy evaluation, likely need home with oxygen. #Acute hypoxic respiratory failure likely secondary to CHF exacerbation #New onset Congestive Heart Failure #CHF HFrEF 10 to 20% (08/08/2024) #Diastolic Dysfunction Grade III #Severe LV Dysfunction, EF of 20% Patient presented with worsening orthopnea, needing to stop to catch his breath within a couple feet, worsening lower peripheral edema over the past year, and now PND. Patient denied history of ME or history of hypertension. EKG r waves present, no deep q waves noted. Ischemic cardio myopathy less likely, plan for right heart cath vs cardiomyopathy, denied alcohol use alochol use. denied smoking history. Patient placed on NC secondary to spO 88% in the ER. Right and Left Heart Cath 1. Nonischemic cardiomyopathy - dilated cardiomyopathy, idiopathic. 2. Normal nonobstructive epicardial coronary arteries. 3. Normal right heart pressures and normal left ventricular filling pressures and normal wedge pressures, well-treated heart failure. 4. Severe LV dysfunction, ejection fraction 20%. Echo (08/08/2024): Moderate to severe LV dilatation with severely reduced LVEF with an EF of 10 to 15%.Severe Global Hypokinesis. Grade 3 diastolic dysfunction.RV not visualized well. Normal RV function. Biatrial dilatation. Severe LA dilatation. Mild MAC. Trace to Mild MR. Dilated IVC. No Pericardial Effusion. Troponin: <0.02 Cxr: prominent vascular congestion, mild enlargement of cardiac contour EKG: Sinus w/ PVC and R waves QTc 445 A1c 5.8% (08/08/2024) Lipid Panel: Triglyerides 75, Cholesterol 138, LDL 82, HDL 41 NYHA Class: III ASCVD: 17.7, risk of cardiovascular event in the next 10 years. Plan: -Lasix 20 mg PO orally - Resumed Entresto 1 tabelt BID -Carvedilol 3.125 mg PO BID & Spironolactone, slowly resume tomorrow -Please hold if GDMT if MAP <65 -Atorvastatin 40 mg PO HS -K>4 and Mg >2 -Work towards GDMT -Fluid Restriction, Daily Weight Sodium Restriction 2 g per day -SpO >90%, oxygen support PRN -Cardiology Consult, appreciate recommendations. #WADE Patients Cr baseline appears to be 1.0 and appears to have pre-renal wade. BUN/Cr 21 vs less likely to cardio-renal as patient does not appear fluid overloaded vs Monitor for intrinisc kidney injury vs monitor for obstructive uropathy. Plan -Strict Ins and Outs -Avoid nephrotoxins and Renally dose medicaiton -Consider nephrology consulted if WADE worsens. #Hyperbilirubinemia Patient appears to have hyperbilirubinemia, likely secondary to dehydration in the setting of WADE. Paitne denied right upper quadrant pain. AST/ALT within normal limits. US gallbladder Normal gallbladder. Denied abdominal pain. Liver US (08/08/2024): Normal common bile duct, pancreatic head 3.6 cm, liver 20.0 cm with fatty infiltration. Consider CT for prominnet pancreatic head. Plan -Consider Hepatitis if continues to woren -continue to trend hyperbilirubinemia Health Maintenance: Disp: Pt is currently admitted to floors for further management of new onset of CHF, awaiting diuresis. FEN: Cardiac Diet DVT: on subQ heparin Code: Full Code Case discussed with attending physician Dr. Nathan and senior Dr. Venita Nogueira MS-4 - The patient's plan was discussed with attending Dr. Venita Clemente MD PGY2 Internal Medicine Attending Provider Attestation/Addendum I have discussed and was present for the essential components of the history, physical examination, diagnosis, and treatment plan with the resident. I agree with the patient's care as documented by the resident and amended herein by me. Robin Nathan MD. Although this document has been carefully reviewed, there may still be some phonetic and other typographical errors. These errors are purely grammatical due to imperfections in the software program and should not be construed in any way to compromise the substance of the patient's medical care during this visit.
--- NOTE | 2024-08-13 22:22 | XR_ITS ---
Examination: Abdomen sonogram, Limited Date and time of exam: August 13, 2024, 0103 hours INDICATIONS: Onset abdominal pain beginning 4 days ago Technique: Real-time lewis scale transabdominal sonographic images of the upper abdomen obtained. Findings: Normal gallbladder. Normal common bile duct 0.3 cm. Pancreatic head 1.7 cm. Liver 15.1 cm fatty infiltration. Normal hepatopedal portal venous flow. Patent IVC. IMPRESSION: Normal gallbladder
[2024-08-13] MEDS: ONDANSETRON INJ 2 MG/ML INJ 2 ML 4 MG IVP (23:42)
[2024-08-14] VITALS (8 sets, daily range): BP systolic 93–111; BP diastolic 57–72; PULSE 69–97; RESP 16–19; TEMP 36.1–36.3; O2SAT 94–98
[2024-08-14 06:17] LABS: Basophils # (Auto) 0.0 Thou/mm3 (0.0-0.2); Basophils % (Auto) 1 % (0-2.5); Eosinophils # (Auto) 0.1 Thou/mm3 (0.0-0.5); Eosinophils % (Auto) 1 % (0-10); Hematocrit 43.9 % (41.0-53.0); Hemoglobin 13.9 g/dL (13.5-16.0); Immature Granulocytes Auto 0.02 Thou/mm3 (0.00-0.00); Lymphocytes # (Auto) 1.0 Thou/mm3 (1.0-4.8); Lymphocytes % (Auto) 13 % (10-50); Mean Corpuscular HGB Conc 31.7 g/dl (31.0-37.0); Mean Corpuscular Hemoglobin 27.5 pg (25.0-35.0); Mean Corpuscular Volume 87 fL (80-100); Monocytes # (Auto) 0.8 Thou/mm3 (0.0-0.8); Monocytes % (Auto) 11 % (0-12); Neutrophils # (Auto) 5.4 Thou/mm3 (1.8-7.7); Neutrophils % (Auto) 74 % (37-80); Nucleated Red Blood Cell # 0.00 Thou/mm3 (0.00-0.00); Nucleated Red Blood Cell % 0 /100 WBC (0); Platelet Count 144 Thou/mm3 (140-440); RDW Standard Deviation 45.6 fL (35.1-43.9); Red Blood Count 5.06 Miln/mm3 (4.50-5.90); White Blood Count 7.3 Thou/mm3 (3.8-10.6)
[2024-08-14 06:52] LABS: Alanine Aminotransferase 21 U/L (10-49); Albumin, Serum 4.2 gm/dL (3.4-4.8); Albumin/Globulin Ratio 1.4 (1.2-2.2); Alkaline Phosphatase 90 U/L (46-116); Anion Gap 11 (7-16); Aspartate Amino Transferase 16 U/L (0-34); BUN/Creatinine Ratio 25 Ratio (12-20); Bilirubin,Total 0.9 mg/dL (0.3-1.2); Blood Urea Nitrogen 28 mg/dL (9-23); Calcium 9.2 mg/dL (8.3-10.6); Calcium (Corrected) 9.2 mg/dL (8.5-10.1); Carbon Dioxide 29.1 mMol/L (20.0-31.0); Chloride 99 mMol/L (98-107); Creatinine (Component) 1.1 mg/dL (0.6-1.3); Estimated Creatinine Clearance 69.1 mL/min (>60); Globulin 2.9 gm/dL (2.3-3.5); Glucose 101 mg/dL (74-106); Osmolality,Calculated 283 (275-295); Potassium 4.2 mMol/L (3.4-5.1); Sodium 139 mMol/L (136-145); Total Protein 7.1 gm/dL (5.7-8.2); eGFR > 60 See Note
--- NOTE | 2024-08-14 08:51 | PD.RESPRO ---
Documentation for date of: 08/14/24 Subjective Subjective Interval history: Patient was evaluated at bedside today with help from his daughter. Per daughter, the patient's left leg is too weak for him to ambulate independently. Patient endorsed tenderness at his left elbow and ball/hell of his left foot. Patient continued to endorse shortness of breath. Patient continued to deny back pain. Patient denied chest pain. Patient was restarted on carvedilol and spironolactone as per GDMT for HFrEF today. Exam Vital Signs Temp Pulse Resp BP Pulse Ox O2 Del Method O2 Flow Rate 97.3 F 71 18 102/71 97 Nasal Cannula 1 08/14/24 08:00 08/14/24 08:00 08/14/24 08:00 08/14/24 08:00 08/14/24 08:00 08/14/24 08:00 08/14/24 08:00 Narrative Exam General Appearance: Alert & Oriented X3, well-nourished male who is lying in bed in mild acute distress due to generalized body aches and pain. HEENT: Skull symmetrical and atraumatic. Conjunctivae pink and moist. Pupils equal, round, reactive to light and accommodation (PERRL). External ear without lesion or discharge. Straight, nares patient, mucosa pink, no discharge. No thyroid nodule appreciated. No cervical lymphadenopathy. Cardio: Normal Rate and Rhythm with S1 and S2 heart sounds. No murmurs or extra heart sounds auscultated. No bruits on carotid auscultation. No peripheral edema or cyanosis. Lungs: Symmetric with good expansion. Chest and back non-tender. Breath sounds vesicular without crackles, wheezing or rhonchi Abdomen: Non-tender, Non-distended, Normal Reactive Bowel Sounds Neuro: Alert, cooperative, oriented to person, place, and time. Speech clear. CN grossly intact. Upper motor strength 5/5 and Lower motor strength 5/5. Sensation intact. Objective Labs 08/14/24 05:56 08/14/24 05:56 Labs: Laboratory Results - last 24 hr 08/13/24 08/14/24 03:45 05:56 WBC 7.3 RBC 5.06 Hgb 13.9 Hct 43.9 MCV 87 MCH 27.5 MCHC 31.7 RDW Std Deviation 45.6 H Plt Count 144 Neut % (Auto) 74 Lymph % (Auto) 13 [place] % (Auto) 11 Eos % (Auto) 1 Baso % (Auto) 1 Neut # (Auto) 5.4 Lymph # (Auto) 1.0 [place] # (Auto) 0.8 Eos # (Auto) 0.1 Baso # (Auto) 0.0 Immature Gran # (Auto) 0.02 H Absolute Nucleated RBC 0.00 Immature Gran % 0 Nucleated RBC % 0 Sodium 139 Potassium 4.2 Chloride 99 Carbon Dioxide 29.1 Anion Gap 11 BUN 28 H Creatinine 1.1 Estim Creat Clear Calc 69.1 eGFR > 60 BUN/Creatinine Ratio 25 H Glucose 101 Calculated Osmolality 283 Uric Acid 9.4 H Calcium 9.2 Corrected Calcium 9.2 Total Bilirubin 0.9 D AST 16 ALT 21 Alkaline Phosphatase 90 Total Creatine Kinase 32 L Total Protein 7.1 Albumin 4.2 Globulin 2.9 Albumin/Globulin Ratio 1.4 ABG Interpretation ABG results: 08/12/24 20:28 ABG pH 7.46 H ABG pCO2 38 ABG pO2 66 L ABG HCO3 27 H ABG O2 Saturation 95 ABG Base Excess 3 Quality Measures Quality Measures none Assessment & Plan Assessment Current Active Medications: Generic Name Dose Route Start Last Admin Trade Name Freq PRN Reason Stop Dose Admin Acetaminophen 650 mg 08/13/24 02:57 Acetaminophen 325 Mg Tablet PO 09/12/24 02:56 Q6H PRN Pain 1-3 and/or Fever >100.1 Hydrocodone Bitart/Acetaminophen 1 tab 08/13/24 02:57 08/13/24 20:28 Hydrocodone/Apap 10/325 Tab PO 08/18/24 02:56 1 tab Q4H PRN Administration PAIN SCALE 4-6 (Moderate Furosemide 20 mg 08/14/24 09:00 Furosemide 20 Mg Tablet PO 09/13/24 08:59 QAM VINAY Heparin Sodium (Porcine) 5,000 unit 08/13/24 09:00 08/13/24 20:29 Heparin Sod Inj 5000 Unit/Ml Vial SC 08/27/24 08:59 5,000 unit Q12HR VINAY Administration Morphine Sulfate 2 mg 08/13/24 02:57 Morphine Sulf Inj 10 Mg/Ml Vial IVP 08/18/24 02:56 Q2H PRN PAIN SCALE 7-10 (Severe Ondansetron HCl 4 mg 08/13/24 02:57 08/13/24 23:42 Ondansetron Inj 2 Mg/Ml Inj 2 Ml IVP 09/12/24 02:56 4 mg Q6H PRN Administration NAUSEA OR VOMITING Protocol Sacubitril/Valsartan 1 tab 08/13/24 21:00 08/13/24 20:28 Sacubitril 24 Mg/Valsartan 26 Mg Tablet PO 09/12/24 20:59 1 tab BID VINAY Administration Sennosides 1 tab 08/13/24 02:57 08/13/24 20:29 Senna Tablet PO 09/12/24 02:56 1 tab QDAY PRN Administration constipation Protocol Plan Plan Patient is a 69 year old male with a PMHx of CHF 10 to 15% (08/08/2024) who originally presented to the ED 08/12 for generalized body pain and SOB who was an overnight admit for generalized body pain. #Generalized Pain Likely secondary to acutely ill status in addition to chronic medical condition, HFrEF Patient reporting generalized body aches and pain Pertinent labs: CK 32 Uric Acid 9.4 ESR 85 CRP >10 Plan: -Start Colchicine 0.6 mg QO PD -Multimodal analgesia -Physical therapy evaluation, likely need home with oxygen. #Acute hypoxic respiratory failure likely secondary to CHF exacerbation #New onset Congestive Heart Failure #CHF HFrEF 10 to 20% (08/08/2024) #Diastolic Dysfunction Grade III #Severe LV Dysfunction, EF of 20% Patient presented with worsening orthopnea, needing to stop to catch his breath within a couple feet, worsening lower peripheral edema over the past year, and now PND. Patient denied history of [place] or history of hypertension. EKG r waves present, no deep q waves noted. Ischemic cardio myopathy less likely, plan for right heart cath vs cardiomyopathy, denied alcohol use alochol use. denied smoking history. Patient placed on NC secondary to spO 88% in the ER. Right and Left Heart Cath 1. Nonischemic cardiomyopathy - dilated cardiomyopathy, idiopathic. 2. Normal nonobstructive epicardial coronary arteries. 3. Normal right heart pressures and normal left ventricular filling pressures and normal wedge pressures, well-treated heart failure. 4. Severe LV dysfunction, ejection fraction 20%. Echo (08/08/2024): Moderate to severe LV dilatation with severely reduced LVEF with an EF of 10 to 15%.Severe Global Hypokinesis. Grade 3 diastolic dysfunction.RV not visualized well. Normal RV function. Biatrial dilatation. Severe LA dilatation. Mild MAC. Trace to Mild MR. Dilated IVC. No Pericardial Effusion. Troponin: <0.02 Cxr: prominent vascular congestion, mild enlargement of cardiac contour EKG: Sinus w/ PVC and R waves QTc 445 A1c 5.8% (08/08/2024) Lipid Panel: Triglyerides 75, Cholesterol 138, LDL 82, HDL 41 NYHA Class: III ASCVD: 17.7, risk of cardiovascular event in the next 10 years. Plan: -Lasix 20 mg PO orally -Continue Entresto 1 tabelt BID -Resume Carvedilol 3.125 mg PO BID & Spironolactone 25 mg PO QD -Please hold if GDMT if MAP <65 -Atorvastatin 40 mg PO HS -K>4 and Mg >2 -Work towards GDMT -Fluid Restriction, Daily Weight Sodium Restriction 2 g per day -SpO >90%, oxygen support PRN -Cardiology Consult, appreciate recommendations. #WADE Patients Cr baseline appears to be 1.0 and appears to have pre-renal wade. BUN/Cr 21 vs less likely to cardio-renal as patient does not appear fluid overloaded vs Monitor for intrinisc kidney injury vs monitor for obstructive uropathy. 08/14/24: BUN 28 Cr 1.1 Plan -Strict Ins and Outs -Avoid nephrotoxins and Renally dose medicaiton -Consider nephrology consulted if WADE worsens. #Hyperbilirubinemia Patient appears to have hyperbilirubinemia, likely secondary to dehydration in the setting of WADE. Paitne denied right upper quadrant pain. AST/ALT within normal limits. US gallbladder Normal gallbladder. Denied abdominal pain. Liver US (08/08/2024): Normal common bile duct, pancreatic head 3.6 cm, liver 20.0 cm with fatty infiltration. Consider CT for prominnet pancreatic head. 08/14/24 TBili 0.9 Plan -Consider Hepatitis if continues to worsen -continue to trend hyperbilirubinemia Health Maintenance: Disp: Pt is currently admitted to floors for further management of new onset of CHF, awaiting diuresis. FEN: Cardiac Diet DVT: on subQ heparin Code: Full Code Case discussed with attending physician Dr. Nathan and senior Dr. Venita Nogueira MS-4 - The patient's plan was discussed with attending Dr. Venita Clemente MD PGY2 Internal Medicine Attending Provider Attestation/Addendum I have discussed and was present for the essential components of the history, physical examination, diagnosis, and treatment plan with the resident. I agree with the patient's care as documented by the resident and amended herein by me. Robin Nathan MD. Although this document has been carefully reviewed, there may still be some phonetic and other typographical errors. These errors are purely grammatical due to imperfections in the software program and should not be construed in any way to compromise the substance of the patient's medical care during this visit.
[2024-08-14] MEDS: COLCHICINE 0.6 MG TABLET PO (09:55)
[2024-08-14] MEDS: HEPARIN SOD INJ 5000 UNIT/ML VIAL SC (09:55)
--- NOTE | 2024-08-14 11:08 | PC.NURSE ---
On room air and at rest patients spo2 decreased to 86%. 2L NC placed back on patient. Spo2 increased to 94%.
--- NOTE | 2024-08-14 11:49 | PC.SS ---
OXYGEN Pt is discharged in a chronic stable state and has been treated optimally and has other respiratory needs. ?Oxygen has been ordered due to CHF Exacerbation. ?
--- NOTE | 2024-08-14 11:57 | PC.SS ---
SS met with dtr and pt to provide them with verbal DME choices (name of vendors and location). Daughter's choice is [facility] due to being local. SS has sent DME order for home O2 to [facility] using [facility].
--- NOTE | 2024-08-14 12:25 | PC.SS ---
SS met with patient and dtr regarding his d/c plan.? Pt is alert/oriented.? Pt was admitted for CHF Exacerbation + Generalized Pain.? Pt confirmed demographic and contact information is correct on facesheet.? Pt resides with granddaughter.? Pt ambulates independently without assistance or DME.? Pt is ok with all ADLs.? Patient is currently on 1 liter of O2.? Pt does not utilize O2 at home.? Pt named his dtr, Clementina Macdonald, phone# [phone] medical decision maker if he is unable.? SS provided verbal options for d/c.? Patient?s choice is to return home upon d/c.? Pt followed up with PCP 3 months ago.? Dtr explained pt is in the process of changing PCP.? Dtr will provide transportation home at [place]. D/C plan:? Return home Next of Kin:? Fuad Macdonald dtr, phone# [phone] or Veronika Macdonald dtr, phone# [phone] PCP:? Dr. Cayla Pineda from [facility] in [place] Address:? Correct on facesheet
--- NOTE | 2024-08-14 13:09 | PD.RESDS ---
Planned Discharge Date 08/14/24 DS: Providers Provider Date of admission: 08/13/24 02:56 Primary care physician: Cayla Pineda MD Admitting Provider: Shiva Mckay MD Attending Provider on Admission: Robin Nathan MD Consults: 08/13/24 09:00 Referral Physical Therapy Routine Comment: Physician Instructions: Attending Provider on DC: Kelin Dhaliwal Discharging Provider: Kelin Dhaliwal DS: Diagnosis Problem List Completed Was Problem List Reviewed/Reconciled?: Yes Hospital Course Hospital Course Hospital course: Summary: Patient is a 69 year old male with a PMHx of recently diagnosed CHF HFrEF 20% and hyperlipidemia who presented to the ED on 08/12 with diffuse pain, BLE edema, and shortness of breath and was an overnight admit for generalized body pain and aches. ED Course: Patient presented to the ED with chief complaint of diffuse pain, BLE edema, and shortness of breath. Patient stated that he was in diffuse pain, most pronounced in the lower extremeties. Patient stated that he could not ambulate independently due to the pain. Patient denied chest pain. Treatment provided includes: oxygen, furesomide 40 mg IVP, 1 inch nitropaste, and morphine 2 mg IVP. Pertinent labs include: ESR 85 D-dimer 2410 BUN 28 BUN/Cr 23 BNP 248 TBili 2.0. EKG demonstrated sinus rhythm with multiple PVCs. CTAP demonstrated normal appendix and prostatomegaly. CTA chest was negative for PE. CXR demonstrated mild vascular congestion. Arterial and venous BLE US demonstrated normal findings. Hospital Course: Patient was an overnight admit 08/12 for generalized body pain and aches. Patient remained on 2L oxygen. Patient continued to demonstrated improvement in regards to generalized body and aches and BLE edema. Treatment provided includes: hydrocodone/acetaminophen for pain, ondansetron 4 mg IVP PRN for nausea, furesomide 40 mg IVP transitioned to 20 mg PO QAM, restarting Entresto 1 tablet and carvedilol 3.125 mg PO BID, and starting colchcine 0.6 PO QD for elevated uric acid and possible acute gout flare. Patient will resume all other home medications upon discharge. Pertinent labs include: Uric Acid 9.4 CK 32 CRP >10 BUN 28 BUN/Cr 25 TBili 0.9. Gallbladder US demonstrated common bile duct 0.3 cm, pancreatic head 1.7 cm, fatty infiltration of liver 15.1 cm. EKG demonstrated sinus rhythm with multiple PVCs. Patient is stable and progressing back to baseline. Instructions: -Colchicine 0.6 mg once daily, for the next 5 days. -continue all medication as prescribed. -please keep track of your weight, limit water intake to no more than 1.8 Liters per day, and limit salt intake to 2 grams per day -Follow up with cardiology, DR. Dtuta, please follow up in outpatient. -Please follow up with your primary care provider within one week of discharge -If your symptoms worsen,please seek immediate medical attention and return to your nearest emergency room -If you do not have a primary care provider, you may follow up at the [facility] at [address] [place] [address] [facility] [address], [place] [address], #Generalized Pain #Elevated Uric Acid #Possible Acute Gout Flare #Acute hypoxic respiratory failure likely secondary to CHF exacerbation #New onset Congestive Heart Failure #CHF HFrEF 10 to 20% (08/08/2024) #Diastolic Dysfunction Grade III #Severe LV Dysfunction, EF of 20% #WADE #Hyperbilirubinemia Case was discussed with attending Dr. Venita Nogueira MS-4 - The patient's plan was discussed with attending Dr. Venita Clemnete MD PGY2 Internal Medicine Status at Discharge Cognitive/behavioral status at discharge: Patient is AO x 4. Time Spent with Patient Time attestation: Total time spent providing and/or coordinating discharge services: Time spent: Greater than 30 minutes Exam Vital Signs Temp Pulse Resp BP Pulse Ox O2 Del Method O2 Flow Rate 97.3 F 97 18 102/71 97 Nasal Cannula 1 08/14/24 08:00 08/14/24 09:55 08/14/24 08:00 08/14/24 09:55 08/14/24 08:00 08/14/24 08:00 08/14/24 08:00 Narrative Exam General Appearance: Alert & Oriented X3, well-nourished male who is lying in bed in no acute distress HEENT: Skull symmetrical and atraumatic. Conjunctivae pin and moist. Pupils equal, round, reactive to light and accommodation (PERRL). Cardio: Normal Rate and Rhythm with S1 and S2 heart sounds. No murmurs or extra heart sounds auscultated. No bruits on carotid auscultation. No peripheral edema or cyanosis. Lungs: Symmetric with good expansion. Chest and back non-tender. Breath sounds vesicular without crackles, wheezing or rhonchi Abdomen: Non-tender, Non-distended, Normal Reactive Bowel Sounds Neuro: Alert, cooperative, oriented to person, place, and time. Speech clear. CN grossly intact. Upper motor strength 5/5 and Lower motor strength 5/5. Sensation intact. Discharge Plan Plan Patient Disposition: Home w/HOME HEALTH Patient condition on transfer: Stable Care Plan Goals: Instructions: -Colchicine 0.6 mg once daily, for the next 5 days. -continue all medication as prescribed. -please keep track of your weight, limit water intake to no more than 1.8 Liters per day, and limit salt intake to 2 grams per day -Follow up with cardiology, DR. Dutta, please follow up in outpatient. -Please follow up with your primary care provider within one week of discharge -If your symptoms worsen,please seek immediate medical attention and return to your nearest emergency room -If you do not have a primary care provider, you may follow up at [facility] [address], [place] [address], Prescriptions/Referrals Prescriptions/Med Rec: New colchicine 0.6 mg Tablet 0.6 mg PO QDAY 5 Days Qty: 5 0RF Continued Aspercreme (lidocaine) 4 % aerosol,spray 1 spray topical Q8HR PRN (Reason: pain) atorvastatin 40 mg tablet 40 mg PO HS Patient Comments: TAKE 1 TABLET BY MOUTH EVERY NIGHT AT BEDTIME spironolactone 25 mg Tablet 25 mg PO DAILY 30 Days Qty: 30 1RF carvedilol 3.125 mg Tablet 3.125 mg PO BIDWM 30 Days Qty: 90 0RF Entresto 24-26 mg Tablet 1 tab PO BID 30 Days Qty: 60 0RF furosemide [Lasix] 20 mg tablet 20 mg PO QDAY 30 Days Qty: 30 1RF Discontinued atorvastatin 20 mg Tablet 40 mg PO HS 30 Days Qty: 60 1RF Referrals: Cayla Pineda MD [Primary Care Provider] - Sri Dutta MD [Physician] - Patient/Caregiver Discharge Instructions Meds to Beds: No Discharge Activity: as per physical therapy and wear oxygen at all times Education Materials: Heart Failure Making Changes to ..., Using an Oxygen Tank at Home, If Oxygen Is Prescribed, CHF Ch Print Language: Belgian Stand Alone Forms: [employer] Info., Patient Portal Info Letter Discharge Order Discharge Orders: Discharge (Routine); Ordered 08/14/24 Ordered By: Raina Clemente Quality Discharge Quality Measures VTE prophylaxis MD Attestestation MD Attestation I have discussed and was present for the essential components of the history, physical examination, diagnosis, and treatment plan with the resident. I agree with the patient's care as documented by the resident and amended herein by me. Robin Nathan MD. Although this document has been carefully reviewed, there may still be some phonetic and other typographical errors. These errors are purely grammatical due to imperfections in the software program and should not be construed in any way to compromise the substance of the patient's medical care during this visit.
--- NOTE | 2024-08-15 10:03 | PC.CM ---
1000 HH orders received, patient discharged on 08/14/24. Reviewed social security benefits interviewer no HH preferred services. Clinicals sent to [facility]
== END 2024-08-14 17:12 | disposition home health service (06) | DRG 291 ==
LOC: SERX 08-13 02:54 → SERHOLD 08-13 03:34 → S3NX 08-13 08:31
PROVIDERS: Student in an Organized Health Care Education/Training Program; Admitting Provider Student in an Organized Health Care Education/Training Program; Emergency Provider Emergency Medicine; PCP Family Medicine; Visit Provider Internal Medicine
DX: I50.42 Chronic combined systolic (congestive) and diastolic (congestive) heart failure (principal); J96.01 Acute respiratory failure with hypoxia; I42.0 Dilated cardiomyopathy; N17.9 Acute kidney failure, unspecified; E66.9 Obesity, unspecified; R16.0 Hepatomegaly, not elsewhere classified; N40.0 Benign prostatic hyperplasia without lower urinary tract symptoms; E78.5 Hyperlipidemia, unspecified; G62.9 Polyneuropathy, unspecified; I50.84 End stage heart failure; I49.3 Ventricular premature depolarization; Z79.899 Other long term (current) drug therapy; Z68.30 Body mass index [BMI] 30.0-30.9, adult
CPT/HCPCS: 36415; 36600; 71045; 71275; 74177; 76705; 80053; 81001; 82150; 82248; 82550; 82803; 83605; 83690; 83735; 83880; 84100; 84145; 84439; 84443; 84484; 84550; 85025; 85379; 85610; 85613; 85652; 85730; 86021; 86036; 86038; 86140; 86225; 87040; 87081; 87400; 87811; 93925; 93970; 97162; A4649; J1644; J1938; J2270; J2405; Q9967; A9270